=== PATIENT | female | born 1985 | race Caucasian/White ===

== ENCOUNTER 2020-05-28 14:41 | Inpatient (IN) | payer OTHER ==
[2020-05-28 17:48] VITALS: BMI 32.3
[2020-05-28] MEDS ORDERED: IBUPROFEN 400 MG TABLET (FP) PO PRN (22:21)
[2020-05-28] MEDS ORDERED: BISMUTH SUBSALICYLATE 524 MG/30 ML UD PO PRN (22:21)
[2020-05-28] MEDS ORDERED: MENTHOL/PHENOL 1 EACH UD MM PRN (22:21)
[2020-05-28] MEDS ORDERED: NICOTINE POLACRILEX 2 MG GUM BUC PRN (22:21)
[2020-05-28] MEDS ORDERED: MAGNESIUM CITRATE 300 ML BOTTLE PO PRN (22:21)
[2020-05-28] MEDS ORDERED: MAGNESIUM HYDROX 2400MG/30ML ORAL SUSPENSION 30 ML CUP PO PRN (22:21)
[2020-05-28] MEDS ORDERED: MAG HYDROX/AL HYDROX/SIMETH 30 ML UNIT-DOSE CUP PO PRN (22:21)
[2020-05-28] MEDS ORDERED: ONDANSETRON *ODT* 4 MG TABLET SL PRN (22:21)
[2020-05-28] MEDS ORDERED: ACETAMINOPHEN 325 MG TABLET (FP) PO PRN ×2 (22:21)
[2020-05-29] MEDS: diazePAM 5 MG TABLET PO SCH ×5 (00:42→22:03)
[2020-05-29] MEDS: METHOCARBAMOL 500 MG TABLET PO PRN (05:37)
[2020-05-29 10:13] LABS: HEMATOCRIT 36.5 % (32.4-45.2); HEMOGLOBIN 12.4 GM/dL (10.7-15.3); MCH 29.9 pg (25.7-33.7); MCHC 33.9 g/dl (32.0-36.0); MEAN CELL VOLUME 88.2 fl (80-96); MEAN PLT VOLUME 8.7 fl (7.5-11.1); PLATELET COUNT 226 K/MM3 (134-434); RBC 4.14 M/mm3 (3.60-5.2); RDW 12.8 % (11.6-15.6); WHITE BLOOD COUNT 7.7 K/mm3 (4.0-10.0)
[2020-05-29 10:17] LABS: POTASSIUM 4.2 mmol/L (3.5-5.1)
[2020-05-29 10:21] LABS: ALBUMIN 3.4 g/dl (3.4-5.0); CALCIUM 8.9 mg/dL (8.5-10.1)
[2020-05-29 10:22] LABS: BLOOD UREA NITROGEN 18.6 mg/dL (7-18)
[2020-05-29] MEDS: PRENATAL VITAMINS W/ FOLIC ACID TABLET (FP) PO SCH (10:23)
[2020-05-29 10:24] LABS: CREATININE 0.8 mg/dL (0.55-1.3)
[2020-05-29] MEDS: NICOTINE 21 MG/24 HOURS TOPICAL PATCH TD SCH (10:24)
[2020-05-29 10:26] LABS: BILIRUBIN,TOTAL 0.2 mg/dL (0.2-1)
[2020-05-29] MEDS ORDERED: METHADONE HCL 10 MG TABLET PO ONE (12:19)
[2020-05-29] MEDS: GABAPENTIN 100 MG CAPSULE PO SCH ×2 (13:43→22:03)
[2020-05-29] MEDS: diazePAM 5 MG TABLET PO PRN (13:43)
[2020-05-29 18:23] LABS: EPI CELLS 12 /uL (0-25.1); HYALINE CASTS 0 /uL (0-3.1); URINE APPEARANCE CLOUDY; URINE BACTERIA >9,000 /uL (0-1359); URINE BILIRUBIN NEGATIVE (NEGATIVE); URINE COLOR YELLOW; URINE GLUCOSE (UA) NEGATIVE (NEGATIVE); URINE KETONE NEGATIVE (NEGATIVE); URINE LEUK ESTERASE NEGATIVE (NEGATIVE); URINE NITRITE POSITIVE (NEGATIVE); URINE PROTEIN NEGATIVE (NEGATIVE); URINE RBC 12 /uL (0-23.9); URINE UROBILINOGEN 0.2 mg/dL (0.2-1.0); URINE WBC 29 /uL (0-25.8)
[2020-05-29] MEDS: THIAMINE HCL 100 MG TABLET (FP) PO SCH (22:03)
[2020-05-29] MEDS: traZODone HCL 50 MG TABLET (FP) PO SCH (22:03)
[2020-05-29] MEDS: MELATONIN 5 MG TABLETS PO SCH (22:04)
[2020-05-30] MEDS: GABAPENTIN 100 MG CAPSULE PO SCH ×3 (05:59→22:19)
[2020-05-30] MEDS: diazePAM 5 MG TABLET PO SCH ×3 (06:00→22:19)
[2020-05-30] MEDS: diazePAM 5 MG TABLET PO PRN ×2 (09:25→18:52)
[2020-05-30] MEDS: PRENATAL VITAMINS W/ FOLIC ACID TABLET (FP) PO SCH (09:26)
[2020-05-30] MEDS ORDERED: METHADONE 80 MG, METHADONE 30 MG PO ONE (10:00)
[2020-05-30] MEDS ORDERED: METHADONE HCL 10 MG TABLET PO ONE (10:00)
[2020-05-30] MEDS ORDERED: METHADONE HCL 10 MG TABLET ONE (10:36)
[2020-05-30] MEDS ORDERED: METHADONE HCL 40 MG DISPERSABLE TABLET ONE (10:37)
[2020-05-30] MEDS: NICOTINE 21 MG/24 HOURS TOPICAL PATCH TD SCH (10:40)
[2020-05-30] MEDS: traZODone HCL 50 MG TABLET (FP) PO SCH (22:19)
[2020-05-30] MEDS: THIAMINE HCL 100 MG TABLET (FP) PO SCH (22:19)
[2020-05-30] MEDS: MELATONIN 5 MG TABLETS PO SCH (22:19)
[2020-05-31] MEDS ORDERED: METHADONE HCL 40 MG DISPERSABLE TABLET ONE (04:35)
[2020-05-31] MEDS ORDERED: METHADONE HCL 10 MG TABLET ONE (04:35)
[2020-05-31] MEDS ORDERED: METHADONE HCL 10 MG TABLET PO SCH (06:00)
[2020-05-31] MEDS: METHADONE 80 MG, METHADONE 30 MG PO SCH (06:16)
[2020-05-31] MEDS: diazePAM 5 MG TABLET PO SCH ×2 (06:16→17:48)
[2020-05-31] MEDS: GABAPENTIN 100 MG CAPSULE PO SCH ×3 (06:17→22:33)
[2020-05-31] MEDS: NICOTINE 21 MG/24 HOURS TOPICAL PATCH TD SCH (10:30)
[2020-05-31] MEDS: PRENATAL VITAMINS W/ FOLIC ACID TABLET (FP) PO SCH (10:30)
[2020-05-31] MEDS: diazePAM 5 MG TABLET PO PRN ×3 (10:31→22:33)
[2020-05-31] MEDS: METHOCARBAMOL 500 MG TABLET PO PRN (13:22)
[2020-05-31] MEDS: THIAMINE HCL 100 MG TABLET (FP) PO SCH (22:33)
[2020-05-31] MEDS: MELATONIN 5 MG TABLETS PO SCH (22:35)
[2020-05-31] MEDS: traZODone HCL 50 MG TABLET (FP) PO SCH (22:36)
[2020-06-01] MEDS ORDERED: METHADONE HCL 40 MG DISPERSABLE TABLET ONE (03:46)
[2020-06-01] MEDS ORDERED: METHADONE HCL 10 MG TABLET ONE (03:46)
[2020-06-01] MEDS ORDERED: diazePAM 5 MG TABLET PO ONE (06:00)
[2020-06-01] MEDS: METHADONE 80 MG, METHADONE 30 MG PO SCH (06:19)
[2020-06-01] MEDS: GABAPENTIN 100 MG CAPSULE PO SCH (06:20)
[2020-06-01 08:06] VITALS: BP 106/62; PULSE 69; TEMP 97.3
[2020-06-01] MEDS: NICOTINE 21 MG/24 HOURS TOPICAL PATCH TD SCH (10:24)
[2020-06-01] MEDS: PRENATAL VITAMINS W/ FOLIC ACID TABLET (FP) PO SCH (10:24)
== END 2020-06-01 11:02 | disposition other institution (70) | DRG 773 ==
LOC: YASAS 14:41 → Y6N 22:51
PROVIDERS: ADMIT Allergy & Immunology; ATTEND Allergy & Immunology
PROC: HZ2ZZZZ Detoxification Services for Substance Abuse Treatment (ICD-10-PCS; principal; 2020-05-28)
DX: F10.230 Alcohol dependence with withdrawal, uncomplicated (principal); F13.230 Sedative, hypnotic or anxiolytic dependence with withdrawal, uncomplicated; F11.20 Opioid dependence, uncomplicated; F12.20 Cannabis dependence, uncomplicated; F17.210 Nicotine dependence, cigarettes, uncomplicated; F19.282 Other psychoactive substance dependence with psychoactive substance-induced sleep disorder; F19.24 Other psychoactive substance dependence with psychoactive substance-induced mood disorder; F31.9 Bipolar disorder, unspecified; F41.9 Anxiety disorder, unspecified; G40.909 Epilepsy, unspecified, not intractable, without status epilepticus; E11.9 Type 2 diabetes mellitus without complications; H54.62 Unqualified visual loss, left eye, normal vision right eye; Z91.5 Personal history of self-harm
CPT/HCPCS: 36415; 80053; 81003; 81025; 82962; 85027; 86780; C9803; Q0162; U0003

== ENCOUNTER 2020-06-01 13:44 | Inpatient (IN) | payer OTHER ==
[2020-06-01] MEDS ORDERED: LOPERAMIDE HCL 2 MG CAPSULE PO PRN (14:37)
[2020-06-01] MEDS ORDERED: P-EPHED 60MG/TRIPROLIDI 2.5MG TABLET PO PRN (14:37)
[2020-06-01] MEDS ORDERED: MENTHOL/PHENOL 1 EACH UD MM PRN (14:37)
[2020-06-01] MEDS ORDERED: MAGNESIUM HYDROX 2400MG/30ML ORAL SUSPENSION 30 ML CUP PO PRN (14:37)
[2020-06-01] MEDS ORDERED: ACETAMINOPHEN 325 MG TABLET (FP) PO PRN (14:37)
[2020-06-01] MEDS ORDERED: IBUPROFEN 400 MG TABLET (FP) PO PRN (14:37)
[2020-06-01] MEDS ORDERED: MAG HYDROX/AL HYDROX/SIMETH 30 ML UNIT-DOSE CUP PO PRN (14:37)
[2020-06-01] MEDS ORDERED: MAGNESIUM CITRATE 300 ML BOTTLE PO PRN (14:37)
[2020-06-01] MEDS ORDERED: guaiFENesin 200 MG/10 ML 10 ML UNIT-DOSE CUPS PO PRN (14:37)
[2020-06-01] MEDS: MELATONIN 5 MG TABLETS PO SCH (21:12)
[2020-06-01] MEDS: THIAMINE HCL 100 MG TABLET (FP) PO SCH (21:12)
[2020-06-01] MEDS: hydrOXYzine PAMOATE 25 MG CAPSULE (FP) PO PRN (21:12)
[2020-06-01] MEDS: traZODone HCL 50 MG TABLET (FP) PO SCH (21:13)
[2020-06-01] MEDS: GABAPENTIN 100 MG CAPSULE PO SCH (22:26)
[2020-06-02] MEDS ORDERED: METHADONE HCL 10 MG TABLET ONE (04:16)
[2020-06-02] MEDS ORDERED: METHADONE HCL 40 MG DISPERSABLE TABLET ONE (04:16)
[2020-06-02] MEDS ORDERED: METHADONE HCL 10 MG TABLET PO SCH (06:00)
[2020-06-02] MEDS: GABAPENTIN 100 MG CAPSULE PO SCH ×3 (07:45→21:22)
[2020-06-02] MEDS: METHADONE 80 MG, METHADONE 30 MG PO SCH (07:45)
[2020-06-02] MEDS ORDERED: NICOTINE 7 MG/24 HOURS TOPICAL PATCH TD SCH (10:00)
[2020-06-02] MEDS: PRENATAL VITAMINS W/ FOLIC ACID TABLET (FP) PO SCH (10:46)
[2020-06-02] MEDS: NICOTINE 14 MG/24 HOURS TOPICAL PATCH TD SCH (12:16)
[2020-06-02] MEDS: hydrOXYzine PAMOATE 25 MG CAPSULE (FP) PO PRN (14:10)
[2020-06-02 16:49] LABS: EPI CELLS >36 /uL (0-25.1); HYALINE CASTS 3 /uL (0-3.1); URINE APPEARANCE CLOUDY; URINE BACTERIA >9,000 /uL (0-1359); URINE BILIRUBIN NEGATIVE (NEGATIVE); URINE COLOR YELLOW; URINE GLUCOSE (UA) NEGATIVE (NEGATIVE); URINE KETONE NEGATIVE (NEGATIVE); URINE LEUK ESTERASE TRACE (NEGATIVE); URINE NITRITE NEGATIVE (NEGATIVE); URINE PROTEIN NEGATIVE (NEGATIVE); URINE RBC 39 /uL (0-23.9); URINE UROBILINOGEN 0.2 mg/dL (0.2-1.0); URINE WBC 59 /uL (0-25.8)
[2020-06-02] MEDS: MELATONIN 5 MG TABLETS PO SCH (21:22)
[2020-06-02] MEDS: THIAMINE HCL 100 MG TABLET (FP) PO SCH (21:22)
[2020-06-02] MEDS: traZODone HCL 50 MG TABLET (FP) PO SCH (21:23)
[2020-06-03] MEDS ORDERED: METHADONE HCL 10 MG TABLET ONE (05:41)
[2020-06-03] MEDS ORDERED: METHADONE HCL 40 MG DISPERSABLE TABLET ONE (05:42)
[2020-06-03] MEDS: GABAPENTIN 100 MG CAPSULE PO SCH ×3 (06:24→21:19)
[2020-06-03] MEDS: METHADONE 80 MG, METHADONE 30 MG PO SCH (06:24)
[2020-06-03] MEDS: PRENATAL VITAMINS W/ FOLIC ACID TABLET (FP) PO SCH (10:44)
[2020-06-03] MEDS: NICOTINE POLACRILEX 2 MG GUM BUC PRN ×3 (10:45→21:21)
[2020-06-03] MEDS: NICOTINE 14 MG/24 HOURS TOPICAL PATCH TD SCH (10:45)
[2020-06-03] MEDS: hydrOXYzine PAMOATE 25 MG CAPSULE (FP) PO PRN (10:46)
[2020-06-03] MEDS ORDERED: GABAPENTIN 100 MG CAPSULE PO SCH (15:00)
[2020-06-03] MEDS: THIAMINE HCL 100 MG TABLET (FP) PO SCH (21:19)
[2020-06-03] MEDS: traZODone HCL 50 MG TABLET (FP) PO SCH (21:19)
[2020-06-03] MEDS: MELATONIN 5 MG TABLETS PO SCH (21:20)
[2020-06-04] MEDS ORDERED: METHADONE HCL 40 MG DISPERSABLE TABLET ONE (05:50)
[2020-06-04] MEDS ORDERED: METHADONE HCL 10 MG TABLET ONE (05:50)
[2020-06-04] MEDS: METHADONE 80 MG, METHADONE 30 MG PO SCH (06:53)
[2020-06-04] MEDS: GABAPENTIN 100 MG CAPSULE PO SCH ×2 (06:53→14:26)
[2020-06-04] MEDS: PRENATAL VITAMINS W/ FOLIC ACID TABLET (FP) PO SCH (10:33)
[2020-06-04] MEDS: hydrOXYzine PAMOATE 25 MG CAPSULE (FP) PO PRN ×2 (10:33→18:38)
[2020-06-04] MEDS: NICOTINE 14 MG/24 HOURS TOPICAL PATCH TD SCH (10:34)
[2020-06-04] MEDS: NICOTINE POLACRILEX 2 MG GUM BUC PRN ×2 (10:35→17:13)
[2020-06-04] MEDS ORDERED: SULFAMETHOXAZOLE/TRIMETHOPRIM 800MG/160MG D.S. TABLET PO ONE (13:42)
[2020-06-04] MEDS: GABAPENTIN 300 MG CAPSULE PO SCH ×2 (14:23→21:21)
[2020-06-04] MEDS: SULFAMETHOXAZOLE/TRIMETHOPRIM 800MG/160MG D.S. TABLET PO SCH (21:21)
[2020-06-04] MEDS: THIAMINE HCL 100 MG TABLET (FP) PO SCH (21:21)
[2020-06-04] MEDS: MELATONIN 5 MG TABLETS PO SCH (21:21)
[2020-06-04] MEDS: traZODone HCL 50 MG TABLET (FP) PO SCH (21:22)
[2020-06-05] MEDS ORDERED: METHADONE HCL 10 MG TABLET ONE (04:01)
[2020-06-05] MEDS ORDERED: METHADONE HCL 40 MG DISPERSABLE TABLET ONE (04:01)
[2020-06-05] MEDS: METHADONE 80 MG, METHADONE 30 MG PO SCH (06:17)
[2020-06-05] MEDS: GABAPENTIN 300 MG CAPSULE PO SCH ×3 (06:17→21:55)
[2020-06-05] MEDS: SULFAMETHOXAZOLE/TRIMETHOPRIM 800MG/160MG D.S. TABLET PO SCH ×2 (10:40→21:56)
[2020-06-05] MEDS: PRENATAL VITAMINS W/ FOLIC ACID TABLET (FP) PO SCH (10:40)
[2020-06-05] MEDS: NICOTINE 14 MG/24 HOURS TOPICAL PATCH TD SCH (10:41)
[2020-06-05] MEDS: hydrOXYzine PAMOATE 25 MG CAPSULE (FP) PO PRN (13:56)
[2020-06-05] MEDS: THIAMINE HCL 100 MG TABLET (FP) PO SCH (21:55)
[2020-06-05] MEDS: MELATONIN 5 MG TABLETS PO SCH (21:56)
[2020-06-05] MEDS: traZODone HCL 50 MG TABLET (FP) PO SCH (21:56)
[2020-06-06] MEDS ORDERED: METHADONE HCL 10 MG TABLET ONE (03:15)
[2020-06-06] MEDS ORDERED: METHADONE HCL 40 MG DISPERSABLE TABLET ONE (03:16)
[2020-06-06] MEDS: GABAPENTIN 300 MG CAPSULE PO SCH ×3 (06:20→21:17)
[2020-06-06] MEDS: METHADONE 80 MG, METHADONE 30 MG PO SCH (06:20)
[2020-06-06] MEDS: PRENATAL VITAMINS W/ FOLIC ACID TABLET (FP) PO SCH (10:44)
[2020-06-06] MEDS: NICOTINE 14 MG/24 HOURS TOPICAL PATCH TD SCH (10:44)
[2020-06-06] MEDS: SULFAMETHOXAZOLE/TRIMETHOPRIM 800MG/160MG D.S. TABLET PO SCH ×2 (10:45→21:17)
[2020-06-06] MEDS: NICOTINE POLACRILEX 2 MG GUM BUC PRN (10:45)
[2020-06-06] MEDS: THIAMINE HCL 100 MG TABLET (FP) PO SCH (21:17)
[2020-06-06] MEDS: MELATONIN 5 MG TABLETS PO SCH (21:17)
[2020-06-06] MEDS: traZODone HCL 50 MG TABLET (FP) PO SCH (23:39)
[2020-06-06] MEDS: MICONAZOLE NITRATE 14 GM/TUBE TUBE TP SCH (23:40)
[2020-06-07] MEDS ORDERED: METHADONE HCL 10 MG TABLET ONE (06:21)
[2020-06-07] MEDS: METHADONE 80 MG, METHADONE 30 MG PO SCH (06:21)
[2020-06-07] MEDS: GABAPENTIN 300 MG CAPSULE PO SCH ×3 (06:21→21:56)
[2020-06-07] MEDS ORDERED: METHADONE HCL 40 MG DISPERSABLE TABLET ONE (06:21)
[2020-06-07] MEDS: PRENATAL VITAMINS W/ FOLIC ACID TABLET (FP) PO SCH (10:53)
[2020-06-07] MEDS: NICOTINE 14 MG/24 HOURS TOPICAL PATCH TD SCH (10:54)
[2020-06-07] MEDS: SULFAMETHOXAZOLE/TRIMETHOPRIM 800MG/160MG D.S. TABLET PO SCH ×2 (10:55→21:56)
[2020-06-07] MEDS: NICOTINE POLACRILEX 2 MG GUM BUC PRN (10:56)
[2020-06-07] MEDS: MICONAZOLE NITRATE 14 GM/TUBE TUBE TP SCH ×2 (13:01→21:56)
[2020-06-07] MEDS: THIAMINE HCL 100 MG TABLET (FP) PO SCH (21:56)
[2020-06-07] MEDS: MELATONIN 5 MG TABLETS PO SCH (21:56)
[2020-06-07] MEDS: traZODone HCL 50 MG TABLET (FP) PO SCH (21:56)
[2020-06-08] MEDS ORDERED: METHADONE HCL 40 MG DISPERSABLE TABLET ONE (04:33)
[2020-06-08] MEDS ORDERED: METHADONE HCL 10 MG TABLET ONE (04:33)
[2020-06-08] MEDS: METHADONE 80 MG, METHADONE 30 MG PO SCH (07:04)
[2020-06-08] MEDS: GABAPENTIN 300 MG CAPSULE PO SCH ×3 (07:05→21:54)
[2020-06-08] MEDS: PRENATAL VITAMINS W/ FOLIC ACID TABLET (FP) PO SCH (10:33)
[2020-06-08] MEDS: MICONAZOLE NITRATE 14 GM/TUBE TUBE TP SCH ×2 (10:34→21:54)
[2020-06-08] MEDS: SULFAMETHOXAZOLE/TRIMETHOPRIM 800MG/160MG D.S. TABLET PO SCH ×2 (10:34→21:54)
[2020-06-08] MEDS: NICOTINE 14 MG/24 HOURS TOPICAL PATCH TD SCH (10:35)
[2020-06-08] MEDS: NICOTINE POLACRILEX 2 MG GUM BUC PRN (10:36)
[2020-06-08] MEDS: MELATONIN 5 MG TABLETS PO SCH (21:54)
[2020-06-08] MEDS: traZODone HCL 50 MG TABLET (FP) PO SCH (21:55)
[2020-06-08] MEDS ORDERED: THIAMINE HCL 100 MG TABLET (FP) PO SCH (22:00)
[2020-06-09] MEDS ORDERED: METHADONE HCL 40 MG DISPERSABLE TABLET ONE (03:47)
[2020-06-09] MEDS ORDERED: METHADONE HCL 10 MG TABLET ONE (03:47)
[2020-06-09] MEDS: METHADONE 80 MG, METHADONE 30 MG PO SCH (06:23)
[2020-06-09] MEDS: GABAPENTIN 300 MG CAPSULE PO SCH (06:24)
[2020-06-09 07:22] VITALS: BP 99/68; PULSE 91; TEMP 97.4
[2020-06-09] MEDS: SULFAMETHOXAZOLE/TRIMETHOPRIM 800MG/160MG D.S. TABLET PO SCH (09:58)
[2020-06-09] MEDS: hydrOXYzine PAMOATE 25 MG CAPSULE (FP) PO PRN (09:59)
[2020-06-09] MEDS: NICOTINE 14 MG/24 HOURS TOPICAL PATCH TD SCH (09:59)
[2020-06-09] MEDS: PRENATAL VITAMINS W/ FOLIC ACID TABLET (FP) PO SCH (09:59)
[2020-06-09] MEDS ORDERED: THIAMINE HCL 100 MG TABLET (FP) PO SCH (10:00)
[2020-06-09] MEDS: MICONAZOLE NITRATE 14 GM/TUBE TUBE TP SCH (10:01)
== END 2020-06-09 10:10 | disposition home or self-care (01) | DRG 772 ==
LOC: YASAS 13:44 → Y5N 13:45
PROVIDERS: ADMIT Allergy & Immunology; ATTEND Allergy & Immunology
PROC: HZ42ZZZ Group Counseling for Substance Abuse Treatment, Cognitive-Behavioral (ICD-10-PCS; principal; 2020-06-01)
DX: F10.20 Alcohol dependence, uncomplicated (principal); F11.20 Opioid dependence, uncomplicated; F13.20 Sedative, hypnotic or anxiolytic dependence, uncomplicated; F12.20 Cannabis dependence, uncomplicated; F17.210 Nicotine dependence, cigarettes, uncomplicated; F19.282 Other psychoactive substance dependence with psychoactive substance-induced sleep disorder; F31.9 Bipolar disorder, unspecified; F41.9 Anxiety disorder, unspecified; G47.00 Insomnia, unspecified; H54.62 Unqualified visual loss, left eye, normal vision right eye; N39.0 Urinary tract infection, site not specified; B96.20 Unspecified Escherichia coli [E. coli] as the cause of diseases classified elsewhere; R73.03 Prediabetes; Z62.810 Personal history of physical and sexual abuse in childhood
CPT/HCPCS: 81003; 82962; 87086; 87186; C9803; U0003

== ENCOUNTER 2021-02-02 17:36 | Inpatient (IN) | payer OTHER ==
[2021-02-02 19:05] VITALS: BMI 30.2
[2021-02-02] MEDS ORDERED: METHOCARBAMOL 500 MG TABLET PO PRN (19:35)
[2021-02-02] MEDS ORDERED: NALOXONE (NARCAN) HCL 4 MG/0.1 ML SPRAY NS PRN (19:35)
[2021-02-02] MEDS ORDERED: MAG HYDROX/AL HYDROX/SIMETH 30 ML UNIT-DOSE CUP PO PRN (19:35)
[2021-02-02] MEDS ORDERED: IBUPROFEN 400 MG TABLET (FP) PO PRN (19:35)
[2021-02-02] MEDS ORDERED: BISMUTH SUBSALICYLATE 524 MG/30 ML PO PRN (19:35)
[2021-02-02] MEDS ORDERED: MENTHOL/PHENOL 1 EACH UD MM PRN (19:35)
[2021-02-02] MEDS ORDERED: ONDANSETRON *ODT* 4 MG TABLET SL PRN (19:35)
[2021-02-02] MEDS ORDERED: MAGNESIUM HYDROX 2400MG/30ML ORAL SUSPENSION 30 ML CUP PO PRN (19:35)
[2021-02-02] MEDS ORDERED: MAGNESIUM CITRATE 300 ML BOTTLE PO PRN (19:35)
[2021-02-02] MEDS ORDERED: ACETAMINOPHEN 325 MG TABLET (FP) PO PRN ×2 (19:35)
[2021-02-02] MEDS: THIAMINE HCL 100 MG TABLET (FP) PO SCH (23:26)
[2021-02-02] MEDS: hydrOXYzine PAMOATE 25 MG CAPSULE (FP) PO SCH (23:26)
[2021-02-02] MEDS: MELATONIN 5 MG TABLETS PO SCH (23:26)
[2021-02-03] MEDS ORDERED: methaDONE HCL 10 MG TABLET ONE (04:50)
[2021-02-03] MEDS ORDERED: methaDONE HCL 40 MG DISPERSABLE TABLET ONE (04:50)
[2021-02-03] MEDS: hydrOXYzine PAMOATE 25 MG CAPSULE (FP) PO SCH (05:50)
[2021-02-03] MEDS ORDERED: methaDONE HCL 40 MG DISPERSABLE TABLET PO SCH (06:00)
[2021-02-03] MEDS: NICOTINE 14 MG/24 HOURS TOPICAL PATCH TD SCH (10:44)
[2021-02-03] MEDS: PRENATAL VITAMINS W/ FOLIC ACID TABLET (FP) PO SCH (10:46)
[2021-02-03 11:39] LABS: HEMATOCRIT 35.5 % (32.4-45.2); HEMOGLOBIN 11.9 GM/dL (10.7-15.3); MCHC 33.6 g/dl (32.0-36.0); MEAN CELL VOLUME 89.5 fl (80-96); MEAN PLT VOLUME 8.9 fl (7.5-11.1); PLATELET COUNT 229 10^3/uL (134-434); RBC 3.97 M/mm3 (3.60-5.2); RDW 12.9 % (11.6-15.6); WHITE BLOOD COUNT 8.8 K/mm3 (4.0-10.0)
[2021-02-03 11:40] LABS: ALBUMIN 3.5 g/dl (3.4-5.0)
[2021-02-03] MEDS: diazePAM 5 MG TABLET PO SCH ×3 (11:41→22:31)
[2021-02-03 11:42] LABS: BLOOD UREA NITROGEN 17.1 mg/dL (7-18)
[2021-02-03 11:43] LABS: CREATININE 0.8 mg/dL (0.55-1.3)
[2021-02-03 11:47] LABS: BILIRUBIN,TOTAL 0.2 mg/dL (0.2-1); TOT PROT 7.2 g/dl (6.4-8.2)
[2021-02-03] MEDS: diazePAM 5 MG TABLET PO PRN (15:57)
[2021-02-03] MEDS: THIAMINE HCL 100 MG TABLET (FP) PO SCH (22:31)
[2021-02-03] MEDS: MELATONIN 5 MG TABLETS PO SCH (22:31)
[2021-02-03] MEDS: traZODone HCL 50 MG TABLET (FP) PO SCH (22:31)
[2021-02-04] MEDS ORDERED: methaDONE HCL 10 MG TABLET ONE (04:52)
[2021-02-04] MEDS ORDERED: methaDONE HCL 40 MG DISPERSABLE TABLET ONE (04:52)
[2021-02-04] MEDS: diazePAM 5 MG TABLET PO SCH ×4 (05:54→22:26)
[2021-02-04] MEDS: NICOTINE 10 MG CARTRIDGE (INHALER) IH PRN ×2 (10:24→14:57)
[2021-02-04] MEDS: PRENATAL VITAMINS W/ FOLIC ACID TABLET (FP) PO SCH (10:24)
[2021-02-04] MEDS: NICOTINE 14 MG/24 HOURS TOPICAL PATCH TD SCH (10:24)
[2021-02-04] MEDS ORDERED: PNEUMOC 13-VAL CONJ-DIP CRM/PF 0.5 ML DISP.SYRIN IM ONE (12:00)
[2021-02-04] MEDS ORDERED: FLU VACC QS2021-22(6MOS UP)/PF 60 MCG/0.5 ML SYRINGE IM ONE (12:00)
[2021-02-04] MEDS: diazePAM 5 MG TABLET PO PRN (14:03)
[2021-02-04] MEDS: THIAMINE HCL 100 MG TABLET (FP) PO SCH (22:26)
[2021-02-04] MEDS: MELATONIN 5 MG TABLETS PO SCH (22:26)
[2021-02-04] MEDS: traZODone HCL 50 MG TABLET (FP) PO SCH (23:09)
[2021-02-05] MEDS ORDERED: methaDONE HCL 10 MG TABLET ONE (04:44)
[2021-02-05] MEDS ORDERED: methaDONE HCL 40 MG DISPERSABLE TABLET ONE (04:44)
[2021-02-05] MEDS: diazePAM 5 MG TABLET PO SCH ×3 (05:57→22:16)
[2021-02-05] MEDS: hydrOXYzine PAMOATE 25 MG CAPSULE (FP) PO PRN (05:59)
[2021-02-05] MEDS: NICOTINE 10 MG CARTRIDGE (INHALER) IH PRN (10:07)
[2021-02-05] MEDS: PRENATAL VITAMINS W/ FOLIC ACID TABLET (FP) PO SCH (10:07)
[2021-02-05] MEDS: NICOTINE 14 MG/24 HOURS TOPICAL PATCH TD SCH (10:07)
[2021-02-05] MEDS: diazePAM 5 MG TABLET PO PRN ×2 (10:09→17:24)
[2021-02-05] MEDS: MELATONIN 5 MG TABLETS PO SCH (22:15)
[2021-02-05] MEDS: THIAMINE HCL 100 MG TABLET (FP) PO SCH (22:15)
[2021-02-05] MEDS: traZODone HCL 50 MG TABLET (FP) PO SCH (22:15)
[2021-02-06] MEDS ORDERED: methaDONE HCL 40 MG DISPERSABLE TABLET ONE (04:21)
[2021-02-06] MEDS ORDERED: methaDONE HCL 10 MG TABLET ONE (04:21)
[2021-02-06] MEDS: diazePAM 5 MG TABLET PO SCH ×2 (05:47→17:03)
[2021-02-06] MEDS: hydrOXYzine PAMOATE 25 MG CAPSULE (FP) PO PRN ×4 (05:47→22:12)
[2021-02-06] MEDS: NICOTINE 10 MG CARTRIDGE (INHALER) IH PRN (10:07)
[2021-02-06] MEDS: diazePAM 5 MG TABLET PO PRN (10:11)
[2021-02-06] MEDS: PRENATAL VITAMINS W/ FOLIC ACID TABLET (FP) PO SCH (10:11)
[2021-02-06] MEDS: NICOTINE 14 MG/24 HOURS TOPICAL PATCH TD SCH (11:41)
[2021-02-06] MEDS: THIAMINE HCL 100 MG TABLET (FP) PO SCH (22:12)
[2021-02-06] MEDS: MELATONIN 5 MG TABLETS PO SCH (22:12)
[2021-02-06] MEDS: traZODone HCL 50 MG TABLET (FP) PO SCH (22:14)
[2021-02-07] MEDS ORDERED: diazePAM 5 MG TABLET PO ONE (06:00)
[2021-02-07] MEDS ORDERED: methaDONE HCL 40 MG DISPERSABLE TABLET ONE (06:49)
[2021-02-07] MEDS ORDERED: methaDONE HCL 10 MG TABLET ONE (06:49)
[2021-02-07] MEDS: NICOTINE 10 MG CARTRIDGE (INHALER) IH PRN (07:12)
[2021-02-07] MEDS: NICOTINE 14 MG/24 HOURS TOPICAL PATCH TD SCH (09:58)
[2021-02-07] MEDS: PRENATAL VITAMINS W/ FOLIC ACID TABLET (FP) PO SCH (09:58)
[2021-02-07 13:02] VITALS: BP 103/66; PULSE 92; TEMP 97.7
== END 2021-02-07 14:25 | disposition other institution (70) | DRG 773 ==
LOC: YASAS 17:36 → Y3N 20:57
PROVIDERS: ADMIT Allergy & Immunology; ATTEND Allergy & Immunology
PROC: HZ2ZZZZ Detoxification Services for Substance Abuse Treatment (ICD-10-PCS; principal; 2021-02-02)
DX: F10.230 Alcohol dependence with withdrawal, uncomplicated (principal); F11.20 Opioid dependence, uncomplicated; F14.20 Cocaine dependence, uncomplicated; F13.20 Sedative, hypnotic or anxiolytic dependence, uncomplicated; F12.20 Cannabis dependence, uncomplicated; F17.210 Nicotine dependence, cigarettes, uncomplicated; F19.282 Other psychoactive substance dependence with psychoactive substance-induced sleep disorder; F19.24 Other psychoactive substance dependence with psychoactive substance-induced mood disorder; F31.9 Bipolar disorder, unspecified; E11.9 Type 2 diabetes mellitus without complications; H54.62 Unqualified visual loss, left eye, normal vision right eye; Z86.19 Personal history of other infectious and parasitic diseases; Z91.410 Personal history of adult physical and sexual abuse
CPT/HCPCS: 36415; 80053; 81025; 83036; 85027; 86780; 86803; 87522; 90670; 90686; 93005; 93010; C9803; G0008; G0009; U0003; U0005

== ENCOUNTER 2021-02-07 14:52 | Inpatient (IN) | payer OTHER ==
[2021-02-07] MEDS ORDERED: P-EPHED 60MG/TRIPROLIDI 2.5MG TABLET PO PRN (15:27)
[2021-02-07] MEDS ORDERED: LOPERAMIDE HCL 2 MG CAPSULE PO PRN (15:27)
[2021-02-07] MEDS ORDERED: MAG HYDROX/AL HYDROX/SIMETH 30 ML UNIT-DOSE CUP PO PRN (15:27)
[2021-02-07] MEDS ORDERED: MAGNESIUM CITRATE 300 ML BOTTLE PO PRN (15:27)
[2021-02-07] MEDS ORDERED: guaiFENesin 200 MG/10 ML 10 ML UNIT-DOSE CUPS PO PRN (15:27)
[2021-02-07] MEDS ORDERED: MENTHOL/PHENOL 1 EACH UD MM PRN (15:27)
[2021-02-07] MEDS ORDERED: MAGNESIUM HYDROX 2400MG/30ML ORAL SUSPENSION 30 ML CUP PO PRN (15:27)
[2021-02-07] MEDS: hydrOXYzine PAMOATE 25 MG CAPSULE (FP) PO PRN (21:34)
[2021-02-07] MEDS: THIAMINE HCL 100 MG TABLET (FP) PO SCH (21:34)
[2021-02-07] MEDS: MELATONIN 5 MG TABLETS PO SCH (21:34)
[2021-02-07] MEDS ORDERED: traZODone HCL 50 MG TABLET (FP) PO SCH (22:00)
[2021-02-08] MEDS ORDERED: methaDONE HCL 40 MG DISPERSABLE TABLET PO SCH (06:00)
[2021-02-08] MEDS ORDERED: methaDONE HCL 10 MG TABLET ONE (06:18)
[2021-02-08] MEDS ORDERED: methaDONE HCL 40 MG DISPERSABLE TABLET ONE (06:18)
[2021-02-08] MEDS: hydrOXYzine PAMOATE 25 MG CAPSULE (FP) PO PRN (10:29)
[2021-02-08] MEDS: PRENATAL VITAMINS W/ FOLIC ACID TABLET (FP) PO SCH (10:29)
[2021-02-08] MEDS: NICOTINE 7 MG/24 HOURS TOPICAL PATCH TD SCH (10:29)
[2021-02-08] MEDS: NICOTINE 10 MG CARTRIDGE (INHALER) IH PRN ×2 (10:29→22:30)
[2021-02-08] MEDS: THIAMINE HCL 100 MG TABLET (FP) PO SCH (21:41)
[2021-02-08] MEDS: GABAPENTIN 100 MG CAPSULE PO SCH (21:41)
[2021-02-08] MEDS: traZODone HCL 50 MG TABLET (FP) PO SCH (21:41)
[2021-02-08] MEDS: MELATONIN 5 MG TABLETS PO SCH (21:42)
[2021-02-09] MEDS ORDERED: methaDONE HCL 40 MG DISPERSABLE TABLET ONE (03:26)
[2021-02-09] MEDS ORDERED: methaDONE HCL 10 MG TABLET ONE (03:26)
[2021-02-09] MEDS: PRENATAL VITAMINS W/ FOLIC ACID TABLET (FP) PO SCH (10:12)
[2021-02-09] MEDS: NICOTINE 7 MG/24 HOURS TOPICAL PATCH TD SCH (10:12)
[2021-02-09] MEDS: GABAPENTIN 100 MG CAPSULE PO SCH ×2 (10:13→21:31)
[2021-02-09] MEDS: NICOTINE 10 MG CARTRIDGE (INHALER) IH PRN ×2 (13:43→21:33)
[2021-02-09] MEDS: hydrOXYzine PAMOATE 25 MG CAPSULE (FP) PO PRN (18:05)
[2021-02-09] MEDS: THIAMINE HCL 100 MG TABLET (FP) PO SCH (21:32)
[2021-02-09] MEDS: MELATONIN 5 MG TABLETS PO SCH (21:32)
[2021-02-09] MEDS: traZODone HCL 50 MG TABLET (FP) PO SCH (21:34)
[2021-02-09] MEDS ORDERED: hydrOXYzine PAMOATE 25 MG CAPSULE (FP) PO PRN (22:00)
[2021-02-10] MEDS ORDERED: methaDONE HCL 40 MG DISPERSABLE TABLET ONE (03:28)
[2021-02-10] MEDS ORDERED: methaDONE HCL 10 MG TABLET ONE (03:28)
[2021-02-10] MEDS: NICOTINE 7 MG/24 HOURS TOPICAL PATCH TD SCH (10:10)
[2021-02-10] MEDS: PRENATAL VITAMINS W/ FOLIC ACID TABLET (FP) PO SCH (10:10)
[2021-02-10] MEDS: GABAPENTIN 100 MG CAPSULE PO SCH ×2 (10:10→21:46)
[2021-02-10] MEDS: NICOTINE 10 MG CARTRIDGE (INHALER) IH PRN ×2 (10:11→21:47)
[2021-02-10] MEDS: THIAMINE HCL 100 MG TABLET (FP) PO SCH (21:46)
[2021-02-10] MEDS: traZODone HCL 50 MG TABLET (FP) PO SCH (21:46)
[2021-02-10] MEDS: MELATONIN 5 MG TABLETS PO SCH (21:47)
[2021-02-11] MEDS ORDERED: methaDONE HCL 40 MG DISPERSABLE TABLET ONE (03:30)
[2021-02-11] MEDS ORDERED: methaDONE HCL 10 MG TABLET ONE (03:30)
[2021-02-11] MEDS: NICOTINE 7 MG/24 HOURS TOPICAL PATCH TD SCH (10:11)
[2021-02-11] MEDS: PRENATAL VITAMINS W/ FOLIC ACID TABLET (FP) PO SCH (10:11)
[2021-02-11] MEDS: GABAPENTIN 100 MG CAPSULE PO SCH ×2 (10:12→21:53)
[2021-02-11] MEDS: hydrOXYzine PAMOATE 25 MG CAPSULE (FP) PO PRN ×2 (10:13→18:24)
[2021-02-11] MEDS: DOCUSATE SODIUM 100 MG CAPSULE (FP) PO PRN (11:03)
[2021-02-11] MEDS: NICOTINE 10 MG CARTRIDGE (INHALER) IH PRN ×2 (13:33→18:23)
[2021-02-11] MEDS: MELATONIN 5 MG TABLETS PO SCH (21:52)
[2021-02-11] MEDS: THIAMINE HCL 100 MG TABLET (FP) PO SCH (21:52)
[2021-02-11] MEDS: traZODone HCL 50 MG TABLET (FP) PO SCH (21:55)
[2021-02-12] MEDS ORDERED: methaDONE HCL 40 MG DISPERSABLE TABLET ONE (03:13)
[2021-02-12] MEDS ORDERED: methaDONE HCL 10 MG TABLET ONE (03:13)
[2021-02-12] MEDS: NICOTINE 10 MG CARTRIDGE (INHALER) IH PRN ×2 (06:40→18:04)
[2021-02-12] MEDS: PRENATAL VITAMINS W/ FOLIC ACID TABLET (FP) PO SCH (10:29)
[2021-02-12] MEDS: NICOTINE 7 MG/24 HOURS TOPICAL PATCH TD SCH (10:29)
[2021-02-12] MEDS: GABAPENTIN 100 MG CAPSULE PO SCH ×3 (10:29→22:00)
[2021-02-12] MEDS: hydrOXYzine PAMOATE 25 MG CAPSULE (FP) PO PRN ×2 (10:30→18:04)
[2021-02-12] MEDS: DOCUSATE SODIUM 100 MG CAPSULE (FP) PO PRN (10:30)
[2021-02-12 19:05] LABS: HIV INTERPRETATION NEGATIVE (NEGATIVE)
[2021-02-12] MEDS: MELATONIN 5 MG TABLETS PO SCH (22:00)
[2021-02-12] MEDS: THIAMINE HCL 100 MG TABLET (FP) PO SCH (22:00)
[2021-02-12] MEDS: traZODone HCL 50 MG TABLET (FP) PO SCH (22:00)
[2021-02-13] MEDS ORDERED: methaDONE HCL 10 MG TABLET ONE (03:15)
[2021-02-13] MEDS ORDERED: methaDONE HCL 40 MG DISPERSABLE TABLET ONE (03:16)
[2021-02-13] MEDS: GABAPENTIN 100 MG CAPSULE PO SCH ×3 (06:44→21:26)
[2021-02-13] MEDS: PRENATAL VITAMINS W/ FOLIC ACID TABLET (FP) PO SCH (09:18)
[2021-02-13] MEDS: IBUPROFEN 400 MG TABLET (FP) PO PRN ×2 (09:18→17:26)
[2021-02-13] MEDS: NICOTINE 7 MG/24 HOURS TOPICAL PATCH TD SCH (09:20)
[2021-02-13] MEDS: DOCUSATE SODIUM 100 MG CAPSULE (FP) PO PRN (21:24)
[2021-02-13] MEDS: traZODone HCL 50 MG TABLET (FP) PO SCH (21:25)
[2021-02-13] MEDS: MELATONIN 5 MG TABLETS PO SCH (21:26)
[2021-02-13] MEDS: hydrOXYzine PAMOATE 25 MG CAPSULE (FP) PO PRN (21:26)
[2021-02-13] MEDS: THIAMINE HCL 100 MG TABLET (FP) PO SCH (21:26)
[2021-02-13] MEDS: NICOTINE 10 MG CARTRIDGE (INHALER) IH PRN (21:29)
[2021-02-14] MEDS ORDERED: methaDONE HCL 10 MG TABLET ONE (04:23)
[2021-02-14] MEDS ORDERED: methaDONE HCL 40 MG DISPERSABLE TABLET ONE (04:24)
[2021-02-14] MEDS: GABAPENTIN 100 MG CAPSULE PO SCH ×3 (06:12→21:35)
[2021-02-14] MEDS: DOCUSATE SODIUM 100 MG CAPSULE (FP) PO PRN (10:46)
[2021-02-14] MEDS: NICOTINE 7 MG/24 HOURS TOPICAL PATCH TD SCH (10:46)
[2021-02-14] MEDS: PRENATAL VITAMINS W/ FOLIC ACID TABLET (FP) PO SCH (10:46)
[2021-02-14] MEDS: hydrOXYzine PAMOATE 25 MG CAPSULE (FP) PO PRN ×2 (10:47→21:37)
[2021-02-14] MEDS: NICOTINE 10 MG CARTRIDGE (INHALER) IH PRN ×3 (10:47→21:36)
[2021-02-14] MEDS: ACETAMINOPHEN 325 MG TABLET (FP) PO PRN (10:48)
[2021-02-14] MEDS ORDERED: BENZOCAINE 20 % GEL TUBE MM PRN (11:25)
[2021-02-14] MEDS: SELENIUM SULFIDE 2.5% LOTION 4 OZ. TP SCH (14:09)
[2021-02-14] MEDS: MELATONIN 5 MG TABLETS PO SCH (21:35)
[2021-02-14] MEDS: THIAMINE HCL 100 MG TABLET (FP) PO SCH (21:35)
[2021-02-14] MEDS: traZODone HCL 50 MG TABLET (FP) PO SCH (21:35)
[2021-02-15] MEDS ORDERED: methaDONE HCL 40 MG DISPERSABLE TABLET ONE (06:08)
[2021-02-15] MEDS ORDERED: methaDONE HCL 10 MG TABLET ONE (06:08)
[2021-02-15] MEDS: GABAPENTIN 100 MG CAPSULE PO SCH ×3 (06:08→21:46)
[2021-02-15] MEDS: hydrOXYzine PAMOATE 25 MG CAPSULE (FP) PO PRN (10:42)
[2021-02-15] MEDS: PRENATAL VITAMINS W/ FOLIC ACID TABLET (FP) PO SCH (10:42)
[2021-02-15] MEDS: SELENIUM SULFIDE 2.5% LOTION 4 OZ. TP SCH (10:42)
[2021-02-15] MEDS: NICOTINE 10 MG CARTRIDGE (INHALER) IH PRN ×2 (10:42→21:48)
[2021-02-15] MEDS: DOCUSATE SODIUM 100 MG CAPSULE (FP) PO PRN (10:42)
[2021-02-15] MEDS: NICOTINE 7 MG/24 HOURS TOPICAL PATCH TD SCH (10:42)
[2021-02-15] MEDS: ACETAMINOPHEN 325 MG TABLET (FP) PO PRN (19:22)
[2021-02-15] MEDS: traZODone HCL 50 MG TABLET (FP) PO SCH (21:46)
[2021-02-15] MEDS: THIAMINE HCL 100 MG TABLET (FP) PO SCH (21:46)
[2021-02-15] MEDS: MELATONIN 5 MG TABLETS PO SCH (21:46)
[2021-02-16] MEDS ORDERED: methaDONE HCL 10 MG TABLET ONE (03:38)
[2021-02-16] MEDS ORDERED: methaDONE HCL 40 MG DISPERSABLE TABLET ONE (03:39)
[2021-02-16] MEDS: GABAPENTIN 100 MG CAPSULE PO SCH ×3 (06:26→21:23)
[2021-02-16] MEDS: DOCUSATE SODIUM 100 MG CAPSULE (FP) PO PRN (10:47)
[2021-02-16] MEDS: PRENATAL VITAMINS W/ FOLIC ACID TABLET (FP) PO SCH (10:47)
[2021-02-16] MEDS: NICOTINE 7 MG/24 HOURS TOPICAL PATCH TD SCH (10:47)
[2021-02-16] MEDS: SELENIUM SULFIDE 2.5% LOTION 4 OZ. TP SCH (10:48)
[2021-02-16] MEDS: hydrOXYzine PAMOATE 25 MG CAPSULE (FP) PO PRN ×2 (10:49→21:24)
[2021-02-16] MEDS: NICOTINE 10 MG CARTRIDGE (INHALER) IH PRN ×2 (10:50→21:25)
[2021-02-16] MEDS: traZODone HCL 50 MG TABLET (FP) PO SCH (21:22)
[2021-02-16] MEDS: MELATONIN 5 MG TABLETS PO SCH (21:23)
[2021-02-16] MEDS: THIAMINE HCL 100 MG TABLET (FP) PO SCH (21:23)
[2021-02-17] MEDS ORDERED: methaDONE HCL 40 MG DISPERSABLE TABLET ONE (05:35)
[2021-02-17] MEDS ORDERED: methaDONE HCL 10 MG TABLET ONE (05:35)
[2021-02-17] MEDS: GABAPENTIN 100 MG CAPSULE PO SCH ×3 (06:27→21:23)
[2021-02-17] MEDS: PRENATAL VITAMINS W/ FOLIC ACID TABLET (FP) PO SCH (10:16)
[2021-02-17] MEDS: hydrOXYzine PAMOATE 25 MG CAPSULE (FP) PO PRN ×2 (10:17→21:24)
[2021-02-17] MEDS: SELENIUM SULFIDE 2.5% LOTION 4 OZ. TP SCH (10:17)
[2021-02-17] MEDS: NICOTINE 7 MG/24 HOURS TOPICAL PATCH TD SCH (10:17)
[2021-02-17] MEDS: NICOTINE 10 MG CARTRIDGE (INHALER) IH PRN ×2 (10:18→21:25)
[2021-02-17] MEDS: traZODone HCL 50 MG TABLET (FP) PO SCH (21:23)
[2021-02-17] MEDS: THIAMINE HCL 100 MG TABLET (FP) PO SCH (21:25)
[2021-02-17] MEDS: MELATONIN 5 MG TABLETS PO SCH (21:25)
[2021-02-18] MEDS ORDERED: methaDONE HCL 10 MG TABLET ONE (03:57)
[2021-02-18] MEDS ORDERED: methaDONE HCL 40 MG DISPERSABLE TABLET ONE (03:57)
[2021-02-18] MEDS: GABAPENTIN 100 MG CAPSULE PO SCH ×3 (06:18→21:39)
[2021-02-18] MEDS: PRENATAL VITAMINS W/ FOLIC ACID TABLET (FP) PO SCH (09:55)
[2021-02-18] MEDS: NICOTINE 7 MG/24 HOURS TOPICAL PATCH TD SCH (09:56)
[2021-02-18] MEDS: SELENIUM SULFIDE 2.5% LOTION 4 OZ. TP SCH (09:57)
[2021-02-18] MEDS: NICOTINE 10 MG CARTRIDGE (INHALER) IH PRN ×2 (09:58→21:40)
[2021-02-18] MEDS: hydrOXYzine PAMOATE 25 MG CAPSULE (FP) PO PRN ×2 (13:49→21:39)
[2021-02-18] MEDS: MELATONIN 5 MG TABLETS PO SCH (21:39)
[2021-02-18] MEDS: traZODone HCL 50 MG TABLET (FP) PO SCH (21:39)
[2021-02-18] MEDS: THIAMINE HCL 100 MG TABLET (FP) PO SCH (21:39)
[2021-02-19] MEDS ORDERED: methaDONE HCL 40 MG DISPERSABLE TABLET ONE (03:53)
[2021-02-19] MEDS ORDERED: methaDONE HCL 10 MG TABLET ONE (03:53)
[2021-02-19] MEDS: GABAPENTIN 100 MG CAPSULE PO SCH ×3 (06:17→21:34)
[2021-02-19] MEDS: hydrOXYzine PAMOATE 25 MG CAPSULE (FP) PO PRN ×2 (10:12→21:35)
[2021-02-19] MEDS: PRENATAL VITAMINS W/ FOLIC ACID TABLET (FP) PO SCH (10:12)
[2021-02-19] MEDS: NICOTINE 10 MG CARTRIDGE (INHALER) IH PRN ×2 (10:13→21:35)
[2021-02-19] MEDS: SELENIUM SULFIDE 2.5% LOTION 4 OZ. TP SCH (10:14)
[2021-02-19] MEDS: NICOTINE 7 MG/24 HOURS TOPICAL PATCH TD SCH (10:14)
[2021-02-19] MEDS: traZODone HCL 50 MG TABLET (FP) PO SCH (21:34)
[2021-02-19] MEDS: THIAMINE HCL 100 MG TABLET (FP) PO SCH (21:34)
[2021-02-19] MEDS: MELATONIN 5 MG TABLETS PO SCH (21:35)
[2021-02-20] MEDS ORDERED: methaDONE HCL 10 MG TABLET ONE (03:28)
[2021-02-20] MEDS ORDERED: methaDONE HCL 40 MG DISPERSABLE TABLET ONE (03:28)
[2021-02-20] MEDS: GABAPENTIN 100 MG CAPSULE PO SCH ×3 (06:15→21:48)
[2021-02-20] MEDS: PRENATAL VITAMINS W/ FOLIC ACID TABLET (FP) PO SCH (10:09)
[2021-02-20] MEDS: NICOTINE 7 MG/24 HOURS TOPICAL PATCH TD SCH (10:09)
[2021-02-20] MEDS: SELENIUM SULFIDE 2.5% LOTION 4 OZ. TP SCH (10:10)
[2021-02-20] MEDS: hydrOXYzine PAMOATE 25 MG CAPSULE (FP) PO PRN ×2 (10:11→21:49)
[2021-02-20] MEDS: NICOTINE 10 MG CARTRIDGE (INHALER) IH PRN ×2 (10:12→21:49)
[2021-02-20] MEDS: MELATONIN 5 MG TABLETS PO SCH (21:48)
[2021-02-20] MEDS: THIAMINE HCL 100 MG TABLET (FP) PO SCH (21:48)
[2021-02-20] MEDS: traZODone HCL 50 MG TABLET (FP) PO SCH (21:48)
[2021-02-21] MEDS ORDERED: methaDONE HCL 40 MG DISPERSABLE TABLET ONE (03:59)
[2021-02-21] MEDS ORDERED: methaDONE HCL 10 MG TABLET ONE (03:59)
[2021-02-21] MEDS: GABAPENTIN 100 MG CAPSULE PO SCH (06:36)
[2021-02-21 07:26] VITALS: BP 98/55; PULSE 62; TEMP 97.6
[2021-02-21] MEDS ORDERED: TOBRAMYCIN 0.3% OPHTH SOLN 5 ML BOTTLE OU SCH (09:30)
[2021-02-21] MEDS: NICOTINE 7 MG/24 HOURS TOPICAL PATCH TD SCH (10:21)
[2021-02-21] MEDS: PRENATAL VITAMINS W/ FOLIC ACID TABLET (FP) PO SCH (10:21)
[2021-02-21] MEDS: DOCUSATE SODIUM 100 MG CAPSULE (FP) PO PRN (10:22)
[2021-02-21] MEDS: hydrOXYzine PAMOATE 25 MG CAPSULE (FP) PO PRN (10:22)
[2021-02-21] MEDS: ACETAMINOPHEN 325 MG TABLET (FP) PO PRN (10:22)
[2021-02-21] MEDS: SELENIUM SULFIDE 2.5% LOTION 4 OZ. TP SCH (10:22)
== END 2021-02-21 10:30 | disposition home or self-care (01) | DRG 772 ==
LOC: YASAS 14:52 → Y5N 14:53
PROVIDERS: ADMIT Allergy & Immunology; ATTEND Allergy & Immunology
PROC: HZ42ZZZ Group Counseling for Substance Abuse Treatment, Cognitive-Behavioral (ICD-10-PCS; principal; 2021-02-07)
DX: F10.20 Alcohol dependence, uncomplicated (principal); F11.20 Opioid dependence, uncomplicated; F13.20 Sedative, hypnotic or anxiolytic dependence, uncomplicated; F14.20 Cocaine dependence, uncomplicated; F12.20 Cannabis dependence, uncomplicated; F17.210 Nicotine dependence, cigarettes, uncomplicated; F39 Unspecified mood [affective] disorder; H54.40 Blindness, one eye, unspecified eye; K02.9 Dental caries, unspecified; L21.0 Seborrhea capitis; R73.03 Prediabetes; Z56.0 Unemployment, unspecified
CPT/HCPCS: 36415; 82962; 87389

== ENCOUNTER 2021-05-15 16:58 | Inpatient (IN) | payer OTHER ==
[2021-05-15 18:43] VITALS: BMI 27.8
[2021-05-15] MEDS ORDERED: ONDANSETRON *ODT* 4 MG TABLET SL PRN (19:14)
[2021-05-15] MEDS ORDERED: NICOTINE POLACRILEX 2 MG GUM BUC PRN (19:14)
[2021-05-15] MEDS ORDERED: MAGNESIUM CITRATE 300 ML BOTTLE PO PRN (19:14)
[2021-05-15] MEDS ORDERED: LOPERAMIDE HCL 2 MG CAPSULE PO PRN (19:14)
[2021-05-15] MEDS ORDERED: ACETAMINOPHEN 325 MG TABLET (FP) PO PRN (19:14)
[2021-05-15] MEDS ORDERED: MENTHOL/PHENOL 1 EACH UD MM PRN (19:14)
[2021-05-15] MEDS ORDERED: P-EPHED 60MG/TRIPROLIDI 2.5MG TABLET PO PRN (19:14)
[2021-05-15] MEDS ORDERED: IBUPROFEN 400 MG TABLET (FP) PO PRN (19:14)
[2021-05-15] MEDS ORDERED: NALOXONE HCL 0.4 MG/ML VIAL IM PRN (19:14)
[2021-05-15] MEDS ORDERED: BISMUTH SUBSALICYLATE 524 MG/30 ML PO PRN (19:14)
[2021-05-15] MEDS ORDERED: MAG HYDROX/AL HYDROX/SIMETH 30 ML UNIT-DOSE CUP PO PRN (19:14)
[2021-05-15] MEDS ORDERED: NALOXONE (NARCAN) HCL 4 MG/0.1 ML SPRAY NS PRN (19:14)
[2021-05-15] MEDS ORDERED: MAGNESIUM HYDROX 2400MG/30ML ORAL SUSPENSION 30 ML CUP PO PRN (19:14)
[2021-05-15] MEDS ORDERED: diazePAM 5 MG TABLET ONE (21:53)
[2021-05-15] MEDS: THIAMINE HCL 100 MG TABLET (FP) PO SCH (21:55)
[2021-05-15] MEDS: MELATONIN 5 MG TABLETS PO SCH (21:56)
[2021-05-15] MEDS: diazePAM 5 MG TABLET PO SCH (21:59)
[2021-05-15] MEDS ORDERED: hydrOXYzine PAMOATE 25 MG CAPSULE (FP) PO SCH (22:00)
[2021-05-15] MEDS: hydrOXYzine PAMOATE 25 MG CAPSULE (FP) PO PRN (22:39)
[2021-05-15] MEDS: METHOCARBAMOL 500 MG TABLET PO PRN (22:39)
[2021-05-15] MEDS: diazePAM 5 MG TABLET PO PRN (23:53)
[2021-05-16] MEDS: diazePAM 5 MG TABLET PO SCH ×4 (05:37→23:06)
[2021-05-16] MEDS: diazePAM 5 MG TABLET PO PRN ×3 (08:01→20:47)
[2021-05-16] MEDS ORDERED: methaDONE HCL 10 MG TABLET PO ONE (08:53)
[2021-05-16] MEDS ORDERED: methaDONE HCL 10 MG TABLET ONE (09:48)
[2021-05-16] MEDS ORDERED: methaDONE HCL 40 MG DISPERSABLE TABLET ONE (09:49)
[2021-05-16 09:56] LABS: HEMATOCRIT 32.4 % (32.4-45.2); HEMOGLOBIN 11.2 GM/dL (10.7-15.3); MCH 30.1 pg (25.7-33.7); MCHC 34.4 g/dl (32.0-36.0); MEAN CELL VOLUME 87.6 fl (80-96); MEAN PLT VOLUME 9.2 fl (7.5-11.1); PLATELET COUNT 183 10^3/uL (134-434); RDW 12.9 % (11.6-15.6); WHITE BLOOD COUNT 6.1 K/mm3 (4.0-10.0)
[2021-05-16 09:58] LABS: CALCIUM 8.6 mg/dL (8.5-10.1)
[2021-05-16 09:59] LABS: ALBUMIN 3.1 g/dl (3.4-5.0); BLOOD UREA NITROGEN 14.2 mg/dL (7-18)
[2021-05-16 10:02] LABS: CREATININE 0.9 mg/dL (0.55-1.3)
[2021-05-16 10:04] LABS: BILIRUBIN,TOTAL 0.5 mg/dL (0.2-1); TOT PROT 6.5 g/dl (6.4-8.2)
[2021-05-16] MEDS: PRENATAL VITAMINS W/ FOLIC ACID TABLET (FP) PO SCH (10:38)
[2021-05-16] MEDS: hydrOXYzine PAMOATE 25 MG CAPSULE (FP) PO PRN (11:57)
[2021-05-16] MEDS: METHOCARBAMOL 500 MG TABLET PO PRN (11:57)
[2021-05-16] MEDS ORDERED: traZODone HCL 50 MG TABLET (FP) PO PRN (13:26)
[2021-05-16] MEDS: GABAPENTIN 100 MG CAPSULE PO SCH ×2 (15:44→21:05)
[2021-05-16] MEDS: ACETAMINOPHEN 325 MG TABLET (FP) PO PRN (17:59)
[2021-05-16] MEDS: NICOTINE 10 MG CARTRIDGE (INHALER) IH PRN (18:27)
[2021-05-16] MEDS: MELATONIN 5 MG TABLETS PO SCH (21:05)
[2021-05-16] MEDS: THIAMINE HCL 100 MG TABLET (FP) PO SCH (21:06)
[2021-05-17] MEDS ORDERED: methaDONE HCL 10 MG TABLET ONE (04:09)
[2021-05-17] MEDS ORDERED: methaDONE HCL 40 MG DISPERSABLE TABLET ONE (04:10)
[2021-05-17] MEDS: GABAPENTIN 100 MG CAPSULE PO SCH ×3 (05:25→21:49)
[2021-05-17] MEDS: diazePAM 5 MG TABLET PO PRN ×4 (05:27→22:51)
[2021-05-17] MEDS ORDERED: methaDONE HCL 10 MG TABLET PO SCH (06:00)
[2021-05-17] MEDS: diazePAM 5 MG TABLET PO SCH ×3 (06:26→21:49)
[2021-05-17] MEDS: PRENATAL VITAMINS W/ FOLIC ACID TABLET (FP) PO SCH (10:09)
[2021-05-17] MEDS: ACETAMINOPHEN 325 MG TABLET (FP) PO PRN (10:11)
[2021-05-17] MEDS: NICOTINE 10 MG CARTRIDGE (INHALER) IH PRN ×2 (13:31→21:51)
[2021-05-17 14:08] LABS: URINE APPEARANCE CLEAR; URINE BILIRUBIN NEGATIVE (NEGATIVE); URINE COLOR YELLOW; URINE GLUCOSE (UA) NEGATIVE (NEGATIVE); URINE KETONE NEGATIVE (NEGATIVE); URINE LEUK ESTERASE NEGATIVE (NEGATIVE); URINE NITRITE NEGATIVE (NEGATIVE); URINE PROTEIN NEGATIVE (NEGATIVE); URINE UROBILINOGEN 0.2 mg/dL (0.2-1.0)
[2021-05-17] MEDS: hydrOXYzine PAMOATE 25 MG CAPSULE (FP) PO PRN (18:12)
[2021-05-17] MEDS: MELATONIN 5 MG TABLETS PO SCH (21:49)
[2021-05-17] MEDS: THIAMINE HCL 100 MG TABLET (FP) PO SCH (21:49)
[2021-05-17] MEDS: METHOCARBAMOL 500 MG TABLET PO PRN (22:53)
[2021-05-18] MEDS ORDERED: methaDONE HCL 10 MG TABLET ONE (04:42)
[2021-05-18] MEDS ORDERED: methaDONE HCL 40 MG DISPERSABLE TABLET ONE (04:43)
[2021-05-18] MEDS: GABAPENTIN 100 MG CAPSULE PO SCH ×3 (06:11→21:57)
[2021-05-18] MEDS: diazePAM 5 MG TABLET PO SCH ×2 (06:12→17:35)
[2021-05-18] MEDS: diazePAM 5 MG TABLET PO PRN ×2 (07:44→15:02)
[2021-05-18] MEDS: PRENATAL VITAMINS W/ FOLIC ACID TABLET (FP) PO SCH (10:27)
[2021-05-18] MEDS: hydrOXYzine PAMOATE 25 MG CAPSULE (FP) PO PRN ×3 (10:28→21:55)
[2021-05-18 14:08] LABS: SARS-CoV-2 NAA Not Detected (Not Detected)
[2021-05-18] MEDS: NICOTINE 10 MG CARTRIDGE (INHALER) IH PRN (17:37)
[2021-05-18] MEDS: METHOCARBAMOL 500 MG TABLET PO PRN (20:14)
[2021-05-18] MEDS: MELATONIN 5 MG TABLETS PO SCH (21:54)
[2021-05-18] MEDS: THIAMINE HCL 100 MG TABLET (FP) PO SCH (21:57)
[2021-05-19] MEDS ORDERED: methaDONE HCL 10 MG TABLET ONE (03:53)
[2021-05-19] MEDS ORDERED: methaDONE HCL 40 MG DISPERSABLE TABLET ONE (03:53)
[2021-05-19] MEDS: GABAPENTIN 100 MG CAPSULE PO SCH (05:38)
[2021-05-19] MEDS ORDERED: diazePAM 5 MG TABLET PO ONE (06:00)
[2021-05-19 08:51] VITALS: BP 100/60; PULSE 72; TEMP 96.7
== END 2021-05-19 09:24 | disposition other institution (70) | DRG 773 ==
LOC: YASAS 16:58 → Y3N 21:26
PROVIDERS: ADMIT Allergy & Immunology; ATTEND Allergy & Immunology
PROC: HZ2ZZZZ Detoxification Services for Substance Abuse Treatment (ICD-10-PCS; principal; 2021-05-15)
DX: F13.230 Sedative, hypnotic or anxiolytic dependence with withdrawal, uncomplicated (principal); F11.20 Opioid dependence, uncomplicated; F14.20 Cocaine dependence, uncomplicated; F12.20 Cannabis dependence, uncomplicated; F17.210 Nicotine dependence, cigarettes, uncomplicated; F19.24 Other psychoactive substance dependence with psychoactive substance-induced mood disorder; F32.A Depression, unspecified; G47.00 Insomnia, unspecified; H54.62 Unqualified visual loss, left eye, normal vision right eye; Z86.19 Personal history of other infectious and parasitic diseases; Z56.0 Unemployment, unspecified; Z59.01 Sheltered homelessness; Z91.410 Personal history of adult physical and sexual abuse
CPT/HCPCS: 36415; 80053; 81003; 85027; 86780; 87811; C9803; U0003; U0005

== ENCOUNTER 2021-07-27 16:42 | Inpatient (IN) | payer OTHER ==
[2021-07-27 18:43] VITALS: BMI 32.1
[2021-07-27] MEDS ORDERED: LOPERAMIDE HCL 2 MG CAPSULE PO PRN (20:13)
[2021-07-27] MEDS ORDERED: ONDANSETRON *ODT* 4 MG TABLET SL PRN (20:13)
[2021-07-27] MEDS ORDERED: DICYCLOMINE HCL 10 MG CAPSULE PO PRN (20:13)
[2021-07-27] MEDS ORDERED: P-EPHED 60MG/TRIPROLIDI 2.5MG TABLET PO PRN (20:13)
[2021-07-27] MEDS ORDERED: BISMUTH SUBSALICYLATE 524 MG/30 ML PO PRN (20:13)
[2021-07-27] MEDS ORDERED: MAGNESIUM CITRATE 300 ML BOTTLE PO PRN (20:13)
[2021-07-27] MEDS ORDERED: NICOTINE 10 MG CARTRIDGE (INHALER) IH PRN (20:13)
[2021-07-27] MEDS ORDERED: MAGNESIUM HYDROX 2400MG/30ML ORAL SUSPENSION 30 ML CUP PO PRN (20:13)
[2021-07-27] MEDS ORDERED: BENZOCAINE/MENTHOL (CHLORASEPTIC ) LOZENGE MM PRN (20:13)
[2021-07-27] MEDS ORDERED: ACETAMINOPHEN 325 MG TABLET (FP) PO PRN (20:13)
[2021-07-27] MEDS ORDERED: IBUPROFEN 400 MG TABLET (FP) PO PRN (20:13)
[2021-07-27] MEDS ORDERED: MAG HYDROX/AL HYDROX/SIMETH 30 ML UNIT-DOSE CUP PO PRN (20:13)
[2021-07-28] MEDS: diazePAM 5 MG TABLET PO SCH ×4 (08:00→22:40)
[2021-07-28] MEDS: diazePAM 5 MG TABLET PO PRN ×3 (09:52→20:36)
[2021-07-28 10:02] LABS: HEMATOCRIT 35.6 % (32.4-45.2); HEMOGLOBIN 11.6 GM/dL (10.7-15.3); MCH 28.7 pg (25.7-33.7); MCHC 32.6 g/dl (32.0-36.0); MEAN CELL VOLUME 88.2 fl (80-96); MEAN PLT VOLUME 8.2 fl (7.5-11.1); PLATELET COUNT 327 10^3/uL (134-434); RBC 4.04 M/mm3 (3.60-5.2); RDW 12.7 % (11.6-15.6); WHITE BLOOD COUNT 11.3 K/mm3 (4.0-10.0)
[2021-07-28 10:04] LABS: ALBUMIN 3.2 g/dl (3.4-5.0); BLOOD UREA NITROGEN 11.2 mg/dL (7-18)
[2021-07-28 10:07] LABS: CREATININE 0.8 mg/dL (0.55-1.3)
[2021-07-28 10:08] LABS: BILIRUBIN,TOTAL 0.2 mg/dL (0.2-1); TOT PROT 7.3 g/dl (6.4-8.2)
[2021-07-28] MEDS ORDERED: BENZOCAINE/MENTH/CETYLPYRD CL 1 EACH LOZENGE MM PRN (11:44)
[2021-07-28] MEDS: METHOCARBAMOL 500 MG TABLET PO PRN (14:56)
[2021-07-28] MEDS: methaDONE HCL 40 MG DISPERSABLE TABLET PO SCH (14:56)
[2021-07-28] MEDS: PRENATAL VITAMINS W/ FOLIC ACID TABLET (FP) PO SCH (14:57)
[2021-07-28] MEDS: hydrOXYzine PAMOATE 25 MG CAPSULE (FP) PO PRN (20:35)
[2021-07-28] MEDS: NICOTINE POLACRILEX 2 MG GUM BUC PRN (20:36)
[2021-07-28] MEDS: traZODone HCL 50 MG TABLET (FP) PO SCH (22:38)
[2021-07-28] MEDS: GABAPENTIN 100 MG CAPSULE PO SCH (22:38)
[2021-07-28] MEDS: THIAMINE HCL 100 MG TABLET (FP) PO SCH (22:39)
[2021-07-29] MEDS: diazePAM 5 MG TABLET PO PRN ×3 (06:38→19:57)
[2021-07-29] MEDS: methaDONE HCL 40 MG DISPERSABLE TABLET PO SCH (06:38)
[2021-07-29] MEDS: GABAPENTIN 100 MG CAPSULE PO SCH ×4 (06:39→22:43)
[2021-07-29] MEDS: METHOCARBAMOL 500 MG TABLET PO PRN ×2 (06:39→22:43)
[2021-07-29] MEDS: diazePAM 5 MG TABLET PO SCH ×4 (07:31→22:44)
[2021-07-29] MEDS: PRENATAL VITAMINS W/ FOLIC ACID TABLET (FP) PO SCH (10:13)
[2021-07-29] MEDS: NICOTINE POLACRILEX 2 MG GUM BUC PRN ×4 (15:36→22:47)
[2021-07-29] MEDS: THIAMINE HCL 100 MG TABLET (FP) PO SCH ×2 (17:28→22:43)
[2021-07-29] MEDS: MELATONIN 5 MG TABLETS PO PRN (22:43)
[2021-07-29] MEDS: traZODone HCL 50 MG TABLET (FP) PO SCH (22:43)
[2021-07-29] MEDS: ACETAMINOPHEN 325 MG TABLET (FP) PO PRN (22:44)
[2021-07-30] MEDS: diazePAM 5 MG TABLET PO SCH ×2 (05:36→17:56)
[2021-07-30] MEDS: methaDONE HCL 40 MG DISPERSABLE TABLET PO SCH (05:36)
[2021-07-30] MEDS: GABAPENTIN 100 MG CAPSULE PO SCH ×3 (05:37→22:32)
[2021-07-30] MEDS: PRENATAL VITAMINS W/ FOLIC ACID TABLET (FP) PO SCH (10:42)
[2021-07-30] MEDS: NICOTINE POLACRILEX 2 MG GUM BUC PRN ×3 (10:45→18:04)
[2021-07-30] MEDS: diazePAM 5 MG TABLET PO PRN (13:31)
[2021-07-30] MEDS: ACETAMINOPHEN 325 MG TABLET (FP) PO PRN (17:57)
[2021-07-30] MEDS: hydrOXYzine PAMOATE 25 MG CAPSULE (FP) PO PRN ×2 (17:59→22:33)
[2021-07-30] MEDS: METHOCARBAMOL 500 MG TABLET PO PRN (20:56)
[2021-07-30] MEDS: THIAMINE HCL 100 MG TABLET (FP) PO SCH (22:32)
[2021-07-30] MEDS: traZODone HCL 50 MG TABLET (FP) PO SCH (22:32)
[2021-07-30] MEDS: MELATONIN 5 MG TABLETS PO PRN (22:33)
[2021-07-31] MEDS: methaDONE HCL 40 MG DISPERSABLE TABLET PO SCH (05:54)
[2021-07-31] MEDS: GABAPENTIN 100 MG CAPSULE PO SCH ×3 (05:55→22:25)
[2021-07-31] MEDS ORDERED: diazePAM 5 MG TABLET PO ONE ×3 (06:00→22:00)
[2021-07-31] MEDS: PRENATAL VITAMINS W/ FOLIC ACID TABLET (FP) PO SCH (10:44)
[2021-07-31] MEDS: NICOTINE POLACRILEX 2 MG GUM BUC PRN ×2 (12:11→19:38)
[2021-07-31] MEDS: hydrOXYzine PAMOATE 25 MG CAPSULE (FP) PO PRN (12:11)
[2021-07-31] MEDS: METHOCARBAMOL 500 MG TABLET PO PRN (12:44)
[2021-07-31 15:08] LABS: HEMOGLOBIN 11.5 GM/dL (10.7-15.3); MCH 28.9 pg (25.7-33.7); MEAN CELL VOLUME 87.5 fl (80-96); MEAN PLT VOLUME 8.1 fl (7.5-11.1); PLATELET COUNT 324 10^3/uL (134-434); RDW 12.3 % (11.6-15.6); WHITE BLOOD COUNT 9.8 K/mm3 (4.0-10.0)
[2021-07-31 16:08] LABS: SARS-CoV-2 NAA Not Detected (Not Detected)
[2021-07-31] MEDS: THIAMINE HCL 100 MG TABLET (FP) PO SCH (22:25)
[2021-07-31] MEDS: traZODone HCL 50 MG TABLET (FP) PO SCH (22:26)
[2021-08-01] MEDS ORDERED: diazePAM 5 MG TABLET PO ONE (06:00)
[2021-08-01] MEDS: methaDONE HCL 40 MG DISPERSABLE TABLET PO SCH (06:04)
[2021-08-01] MEDS: GABAPENTIN 100 MG CAPSULE PO SCH (06:05)
[2021-08-01 08:53] VITALS: BP 94/66; PULSE 74; TEMP 96.9
== END 2021-08-01 09:45 | disposition other institution (70) | DRG 773 ==
LOC: YASAS 16:42 → Y3N 07-28 13:15
PROVIDERS: ADMIT Allergy & Immunology; ATTEND Surgery
PROC: HZ2ZZZZ Detoxification Services for Substance Abuse Treatment (ICD-10-PCS; principal; 2021-07-28)
DX: F10.230 Alcohol dependence with withdrawal, uncomplicated (principal); F11.20 Opioid dependence, uncomplicated; F13.20 Sedative, hypnotic or anxiolytic dependence, uncomplicated; F14.20 Cocaine dependence, uncomplicated; F12.20 Cannabis dependence, uncomplicated; F17.210 Nicotine dependence, cigarettes, uncomplicated; F31.9 Bipolar disorder, unspecified; F19.24 Other psychoactive substance dependence with psychoactive substance-induced mood disorder; E11.9 Type 2 diabetes mellitus without complications; G47.00 Insomnia, unspecified; B18.2 Chronic viral hepatitis C
CPT/HCPCS: 36415; 80053; 81025; 85027; 86780; C9803-CS; U0003; U0005

== ENCOUNTER 2022-06-20 17:27 | Inpatient (IN) | payer OTHER ==
[2022-06-20 18:24] VITALS: BMI 32.1
[2022-06-20] MEDS ORDERED: hydrOXYzine PAMOATE 25 MG CAPSULE (FP) PO PRN (19:29)
[2022-06-20] MEDS ORDERED: NICOTINE POLACRILEX 2 MG GUM BUC PRN (19:29)
[2022-06-20] MEDS ORDERED: guaiFENesin 600 MG TABLET.ER (FP) PO PRN (19:29)
[2022-06-20] MEDS ORDERED: MAGNESIUM HYDROX 2400MG/30ML ORAL SUSPENSION 30 ML CUP PO PRN (19:29)
[2022-06-20] MEDS ORDERED: BENZONATATE 200 MG CAPSULE PO PRN (19:29)
[2022-06-20] MEDS ORDERED: ACETAMINOPHEN 325 MG TABLET (FP) PO PRN (19:29)
[2022-06-20] MEDS ORDERED: MAG HYDROX/AL HYDROX/SIMETH 30 ML UNIT-DOSE CUP PO PRN (19:29)
[2022-06-20] MEDS ORDERED: DICYCLOMINE HCL 10 MG CAPSULE PO PRN (19:29)
[2022-06-20] MEDS ORDERED: BISMUTH SUBSALICYLATE 524 MG/30 ML PO PRN (19:29)
[2022-06-20] MEDS ORDERED: ONDANSETRON *ODT* 4 MG TABLET SL PRN (19:29)
[2022-06-20] MEDS ORDERED: LOPERAMIDE HCL 2 MG CAPSULE PO PRN (19:29)
[2022-06-20] MEDS ORDERED: BENZOCAINE/MENTHOL (CHLORASEPTIC ) LOZENGE MM PRN (19:29)
[2022-06-20] MEDS ORDERED: NICOTINE 10 MG CARTRIDGE (INHALER) IH PRN (19:29)
[2022-06-20] MEDS ORDERED: IBUPROFEN 400 MG TABLET (FP) PO PRN (19:29)
[2022-06-20] MEDS ORDERED: NALOXONE HCL (KLOXXADO) 8 MG SPRAY NS PRN (19:29)
[2022-06-20] MEDS ORDERED: POLYETHYLENE GLYCOL (HEALTHYLAX) 3350 17 GM PACKET PO PRN (19:29)
[2022-06-20] MEDS ORDERED: P-EPHED 60MG/TRIPROLIDI 2.5MG TABLET PO PRN (19:29)
[2022-06-20] MEDS ORDERED: NALOXONE HCL 0.4 MG/ML VIAL IM PRN (19:29)
[2022-06-20] MEDS ORDERED: levETIRAcetam 500 MG TABLET (FP) PO SCH (22:00)
[2022-06-20] MEDS: MELATONIN 5 MG TABLETS PO PRN (22:40)
[2022-06-20] MEDS: THIAMINE HCL 100 MG TABLET (FP) PO SCH (22:40)
[2022-06-20] MEDS: diazePAM 5 MG TABLET PO PRN (22:40)
[2022-06-21] MEDS ORDERED: SENNOSIDES 8.6MG TABLET (FP) PO PRN (00:16)
[2022-06-21] MEDS: EYE OS SCH ×5 (00:44→22:52)
[2022-06-21] MEDS: CYCLOPENTOLATE 1% OS SCH ×2 (00:44→10:18)
[2022-06-21] MEDS: MOXIFLOXACIN 0.5% OS SCH ×3 (00:45→22:52)
[2022-06-21] MEDS: ERYTHROMYCIN 0.5% OPHTHALMIC OINTMENT 3.5 GM TUBE OS SCH ×3 (00:46→22:52)
[2022-06-21] MEDS: PREDNISOLONE 1% OS SCH ×3 (00:46→22:52)
[2022-06-21] MEDS: GABAPENTIN 300 MG CAPSULE PO SCH ×2 (00:46→10:17)
[2022-06-21] MEDS: METHOCARBAMOL 500 MG TABLET PO PRN ×2 (05:30→22:53)
[2022-06-21] MEDS: diazePAM 5 MG TABLET PO PRN ×2 (05:31→10:20)
[2022-06-21] MEDS: methaDONE HCL 40 MG DISPERSABLE TABLET PO SCH (07:43)
[2022-06-21] MEDS: PRENATAL VITAMINS W/ FOLIC ACID TABLET (FP) PO SCH (10:17)
[2022-06-21] MEDS: levETIRAcetam 500 MG TABLET (FP) PO SCH ×2 (10:17→22:51)
[2022-06-21] MEDS: IBUPROFEN 600 MG TABLET (FP) PO PRN ×2 (10:21→18:11)
[2022-06-21 10:28] LABS: HEMATOCRIT 36.4 % (32.4-45.2); HEMOGLOBIN 12.3 GM/dL (10.7-15.3); MCH 28.6 pg (25.7-33.7); MCHC 33.8 g/dl (32.0-36.0); MEAN CELL VOLUME 84.6 fl (80-96); MEAN PLT VOLUME 9.8 fl (7.5-11.1); PLATELET COUNT 220 10^3/uL (134-434); RBC 4.31 M/mm3 (3.60-5.2); RDW 13.3 % (11.6-15.6); WHITE BLOOD COUNT 6.4 K/mm3 (4.0-10.0)
[2022-06-21] MEDS: diazePAM 5 MG TABLET PO SCH ×3 (10:45→22:51)
[2022-06-21 10:54] LABS: CALCIUM 8.9 mg/dL (8.5-10.1)
[2022-06-21 10:55] LABS: ALBUMIN 3.3 g/dl (3.4-5.0); BLOOD UREA NITROGEN 16.1 mg/dL (7-18)
[2022-06-21 10:58] LABS: CREATININE 0.9 mg/dL (0.55-1.3)
[2022-06-21 11:01] LABS: BILIRUBIN,TOTAL 0.6 mg/dL (0.2-1)
[2022-06-21] MEDS: MELATONIN 5 MG TABLETS PO PRN (22:51)
[2022-06-21] MEDS: traZODone HCL 50 MG TABLET (FP) PO SCH (22:51)
[2022-06-21] MEDS: THIAMINE HCL 100 MG TABLET (FP) PO SCH (22:51)
[2022-06-21] MEDS: ACETAMINOPHEN 325 MG TABLET (FP) PO PRN (22:52)
[2022-06-22] MEDS: methaDONE HCL 40 MG DISPERSABLE TABLET PO SCH (05:16)
[2022-06-22] MEDS: diazePAM 5 MG TABLET PO SCH ×4 (05:16→22:48)
[2022-06-22] MEDS: ACETAMINOPHEN 325 MG TABLET (FP) PO PRN (05:18)
[2022-06-22] MEDS: PRENATAL VITAMINS W/ FOLIC ACID TABLET (FP) PO SCH (10:06)
[2022-06-22] MEDS: levETIRAcetam 500 MG TABLET (FP) PO SCH ×2 (10:08→22:47)
[2022-06-22] MEDS: EYE OS SCH ×3 (10:10→22:51)
[2022-06-22] MEDS: MOXIFLOXACIN 0.5% OS SCH ×2 (10:10→22:51)
[2022-06-22] MEDS: CYCLOPENTOLATE 1% OS SCH (10:10)
[2022-06-22] MEDS: PREDNISOLONE 1% OS SCH ×2 (10:11→22:51)
[2022-06-22] MEDS: ERYTHROMYCIN 0.5% OPHTHALMIC OINTMENT 3.5 GM TUBE OS SCH ×2 (10:11→22:50)
[2022-06-22] MEDS: diazePAM 5 MG TABLET PO PRN (19:34)
[2022-06-22] MEDS: traZODone HCL 50 MG TABLET (FP) PO SCH (22:47)
[2022-06-22] MEDS: THIAMINE HCL 100 MG TABLET (FP) PO SCH (22:48)
[2022-06-23] MEDS: diazePAM 5 MG TABLET PO SCH ×3 (05:50→22:10)
[2022-06-23] MEDS: methaDONE HCL 40 MG DISPERSABLE TABLET PO SCH (05:50)
[2022-06-23] MEDS: PRENATAL VITAMINS W/ FOLIC ACID TABLET (FP) PO SCH (11:00)
[2022-06-23] MEDS: EYE OS SCH ×3 (11:00→21:40)
[2022-06-23] MEDS: levETIRAcetam 500 MG TABLET (FP) PO SCH ×2 (11:00→22:09)
[2022-06-23] MEDS: ERYTHROMYCIN 0.5% OPHTHALMIC OINTMENT 3.5 GM TUBE OS SCH ×2 (11:00→21:20)
[2022-06-23] MEDS: CYCLOPENTOLATE 1% OS SCH (11:00)
[2022-06-23] MEDS: MOXIFLOXACIN 0.5% OS SCH ×2 (11:00→21:20)
[2022-06-23] MEDS: PREDNISOLONE 1% OS SCH ×2 (11:00→21:40)
[2022-06-23] MEDS: diazePAM 5 MG TABLET PO PRN ×2 (11:20→20:47)
[2022-06-23] MEDS: traZODone HCL 50 MG TABLET (FP) PO SCH (22:09)
[2022-06-23] MEDS: MELATONIN 5 MG TABLETS PO PRN (22:09)
[2022-06-23] MEDS: THIAMINE HCL 100 MG TABLET (FP) PO SCH (22:10)
[2022-06-23] MEDS: METHOCARBAMOL 500 MG TABLET PO PRN (22:10)
[2022-06-24] MEDS: methaDONE HCL 40 MG DISPERSABLE TABLET PO SCH (05:22)
[2022-06-24] MEDS: diazePAM 5 MG TABLET PO SCH ×2 (05:22→18:01)
[2022-06-24] MEDS: diazePAM 5 MG TABLET PO PRN (10:20)
[2022-06-24] MEDS: IBUPROFEN 600 MG TABLET (FP) PO PRN (10:55)
[2022-06-24] MEDS: levETIRAcetam 500 MG TABLET (FP) PO SCH ×2 (10:55→22:19)
[2022-06-24] MEDS: PRENATAL VITAMINS W/ FOLIC ACID TABLET (FP) PO SCH (10:56)
[2022-06-24] MEDS: EYE OS SCH ×3 (10:57→23:11)
[2022-06-24] MEDS: CYCLOPENTOLATE 1% OS SCH (10:57)
[2022-06-24] MEDS: ERYTHROMYCIN 0.5% OPHTHALMIC OINTMENT 3.5 GM TUBE OS SCH ×2 (10:57→23:10)
[2022-06-24] MEDS: MOXIFLOXACIN 0.5% OS SCH ×2 (10:57→23:10)
[2022-06-24] MEDS: PREDNISOLONE 1% OS SCH ×2 (10:57→23:11)
[2022-06-24] MEDS: MELATONIN 5 MG TABLETS PO PRN (22:18)
[2022-06-24] MEDS: THIAMINE HCL 100 MG TABLET (FP) PO SCH (22:19)
[2022-06-24] MEDS: traZODone HCL 50 MG TABLET (FP) PO SCH (22:19)
[2022-06-24] MEDS: METHOCARBAMOL 500 MG TABLET PO PRN (22:20)
[2022-06-25] MEDS: ACETAMINOPHEN 325 MG TABLET (FP) PO PRN (05:45)
[2022-06-25] MEDS: methaDONE HCL 40 MG DISPERSABLE TABLET PO SCH (05:45)
[2022-06-25] MEDS ORDERED: diazePAM 5 MG TABLET PO ONE (06:00)
[2022-06-25 08:47] VITALS: RESP 16
[2022-06-25] MEDS: levETIRAcetam 500 MG TABLET (FP) PO SCH (10:05)
[2022-06-25] MEDS: MOXIFLOXACIN 0.5% OS SCH (10:05)
[2022-06-25] MEDS: PRENATAL VITAMINS W/ FOLIC ACID TABLET (FP) PO SCH (10:05)
[2022-06-25] MEDS: PREDNISOLONE 1% OS SCH (10:06)
[2022-06-25] MEDS: EYE OS SCH ×2 (10:06→10:07)
[2022-06-25] MEDS: ERYTHROMYCIN 0.5% OPHTHALMIC OINTMENT 3.5 GM TUBE OS SCH (10:07)
[2022-06-25] MEDS: CYCLOPENTOLATE 1% OS SCH (10:07)
[2022-06-25 12:38] VITALS: BP 108/56; PULSE 55; TEMP 97.3
== END 2022-06-25 13:29 | disposition other institution (70) | DRG 773 ==
LOC: YASAS 17:27 → Y3N 20:15
PROVIDERS: ADMIT Allergy & Immunology; ATTEND Surgery
PROC: HZ2ZZZZ Detoxification Services for Substance Abuse Treatment (ICD-10-PCS; principal; 2022-06-20)
DX: F11.23 Opioid dependence with withdrawal (principal); F13.20 Sedative, hypnotic or anxiolytic dependence, uncomplicated; F10.20 Alcohol dependence, uncomplicated; F14.20 Cocaine dependence, uncomplicated; F12.20 Cannabis dependence, uncomplicated; F17.210 Nicotine dependence, cigarettes, uncomplicated; F19.24 Other psychoactive substance dependence with psychoactive substance-induced mood disorder; E11.9 Type 2 diabetes mellitus without complications; H54.62 Unqualified visual loss, left eye, normal vision right eye; Z87.828 Personal history of other (healed) physical injury and trauma; Z59.00 Homelessness unspecified; Z56.0 Unemployment, unspecified
CPT/HCPCS: 36415; 80053; 81025; 85027; 86780; 93005; 93010; C9803-CS; U0003; U0005

== ENCOUNTER 2022-06-25 13:56 | Inpatient (IN) | payer OTHER ==
[2022-06-25] MEDS ORDERED: hydrOXYzine PAMOATE 25 MG CAPSULE (FP) PO PRN (15:22)
[2022-06-25] MEDS ORDERED: BENZONATATE 200 MG CAPSULE PO PRN (15:22)
[2022-06-25] MEDS ORDERED: LOPERAMIDE HCL 2 MG CAPSULE PO PRN (15:22)
[2022-06-25] MEDS ORDERED: guaiFENesin 600 MG TABLET.ER (FP) PO PRN (15:22)
[2022-06-25] MEDS ORDERED: MAG HYDROX/AL HYDROX/SIMETH 30 ML UNIT-DOSE CUP PO PRN (15:22)
[2022-06-25] MEDS ORDERED: METHOCARBAMOL 500 MG TABLET PO PRN (15:22)
[2022-06-25] MEDS ORDERED: IBUPROFEN 600 MG TABLET (FP) PO PRN (15:22)
[2022-06-25] MEDS ORDERED: NALOXONE HCL (KLOXXADO) 8 MG SPRAY NS PRN (15:22)
[2022-06-25] MEDS ORDERED: IBUPROFEN 400 MG TABLET (FP) PO PRN (15:22)
[2022-06-25] MEDS ORDERED: NALOXONE HCL 0.4 MG/ML VIAL IVPUSH PRN (15:22)
[2022-06-25] MEDS ORDERED: POLYETHYLENE GLYCOL (HEALTHYLAX) 3350 17 GM PACKET PO PRN (15:22)
[2022-06-25] MEDS ORDERED: BENZOCAINE/MENTHOL (CHLORASEPTIC ) LOZENGE MM PRN (15:22)
[2022-06-25] MEDS: THIAMINE HCL 100 MG TABLET (FP) PO SCH (21:15)
[2022-06-25] MEDS: MELATONIN 5 MG TABLETS PO SCH (21:15)
[2022-06-25] MEDS: NICOTINE 10 MG CARTRIDGE (INHALER) IH PRN (21:16)
[2022-06-25] MEDS: ACETAMINOPHEN 325 MG TABLET (FP) PO PRN (21:17)
[2022-06-25] MEDS: prednisoLONE ACETATE 1% OPHTH SUSP 5 ML BOTTLE OS SCH (21:47)
[2022-06-25] MEDS: MOXIFLOXACIN 0.5% OS SCH (21:48)
[2022-06-25] MEDS: CYCLOPENTOLATE 1% OS SCH (21:48)
[2022-06-25] MEDS: ERYTHROMYCIN 0.5% OPHTHALMIC OINTMENT 3.5 GM TUBE OS SCH (21:48)
[2022-06-25] MEDS: EYE OS SCH ×2 (21:48)
[2022-06-26] MEDS ORDERED: ONDANSETRON 8 MG TABLET (FP) PO ONE (00:48)
[2022-06-26] MEDS ORDERED: ONDANSETRON *ODT* 4 MG TABLET SL ONE (01:15)
[2022-06-26] MEDS: methaDONE HCL 40 MG DISPERSABLE TABLET PO SCH (06:30)
[2022-06-26] MEDS ORDERED: ONDANSETRON *ODT* 4 MG TABLET SL PRN (08:15)
[2022-06-26] MEDS ORDERED: CYCLOPENTOLATE HCL 1% OPHTH SOLN 2 ML BOTTLE OS SCH (10:00)
[2022-06-26] MEDS ORDERED: ESCITALOPRAM OXALATE 10 MG TABLET PO SCH (10:00)
[2022-06-26] MEDS: PRENATAL VITAMINS W/ FOLIC ACID TABLET (FP) PO SCH (10:28)
[2022-06-26] MEDS ORDERED: COLLOIDAL OATMEAL 1 BAR EACH TP PRN (10:59)
[2022-06-26] MEDS: CYCLOPENTOLATE 1% OS SCH ×2 (11:41→22:47)
[2022-06-26] MEDS: prednisoLONE ACETATE 1% OPHTH SUSP 5 ML BOTTLE OS SCH ×2 (11:41→22:47)
[2022-06-26] MEDS: MOXIFLOXACIN 0.5% OS SCH ×2 (11:41→22:48)
[2022-06-26] MEDS: EYE OS SCH ×4 (11:41→22:48)
[2022-06-26] MEDS: ERYTHROMYCIN 0.5% OPHTHALMIC OINTMENT 3.5 GM TUBE OS SCH ×2 (11:42→22:47)
[2022-06-26] MEDS: GABAPENTIN 300 MG CAPSULE PO SCH ×2 (15:01→21:20)
[2022-06-26] MEDS: THIAMINE HCL 100 MG TABLET (FP) PO SCH (21:20)
[2022-06-26] MEDS: traZODone HCL 50 MG TABLET (FP) PO SCH (21:20)
[2022-06-26] MEDS: MELATONIN 5 MG TABLETS PO SCH (21:20)
[2022-06-27] MEDS: methaDONE HCL 40 MG DISPERSABLE TABLET PO SCH (06:27)
[2022-06-27] MEDS: GABAPENTIN 300 MG CAPSULE PO SCH ×3 (06:27→21:31)
[2022-06-27] MEDS: NICOTINE 10 MG CARTRIDGE (INHALER) IH PRN (10:13)
[2022-06-27] MEDS: PRENATAL VITAMINS W/ FOLIC ACID TABLET (FP) PO SCH (10:14)
[2022-06-27] MEDS: MOXIFLOXACIN 0.5% OS SCH ×2 (10:15→21:44)
[2022-06-27] MEDS: EYE OS SCH ×4 (10:15→21:44)
[2022-06-27] MEDS: ERYTHROMYCIN 0.5% OPHTHALMIC OINTMENT 3.5 GM TUBE OS SCH ×2 (10:15→21:43)
[2022-06-27] MEDS: prednisoLONE ACETATE 1% OPHTH SUSP 5 ML BOTTLE OS SCH ×2 (10:15→21:44)
[2022-06-27] MEDS: CYCLOPENTOLATE 1% OS SCH ×2 (10:15→21:44)
[2022-06-27] MEDS: ACETAMINOPHEN 325 MG TABLET (FP) PO PRN (10:16)
[2022-06-27] MEDS: THIAMINE HCL 100 MG TABLET (FP) PO SCH (21:31)
[2022-06-27] MEDS: traZODone HCL 50 MG TABLET (FP) PO SCH (21:31)
[2022-06-27] MEDS: MELATONIN 5 MG TABLETS PO SCH (21:32)
[2022-06-27] MEDS: hydrOXYzine PAMOATE 25 MG CAPSULE (FP) PO PRN (21:34)
[2022-06-28] MEDS: GABAPENTIN 300 MG CAPSULE PO SCH ×3 (06:32→21:46)
[2022-06-28] MEDS: methaDONE HCL 40 MG DISPERSABLE TABLET PO SCH (06:32)
[2022-06-28] MEDS: hydrOXYzine PAMOATE 25 MG CAPSULE (FP) PO PRN (06:32)
[2022-06-28] MEDS: prednisoLONE ACETATE 1% OPHTH SUSP 5 ML BOTTLE OS SCH ×2 (10:33→21:47)
[2022-06-28] MEDS: EYE OS SCH ×4 (10:33→21:47)
[2022-06-28] MEDS: MOXIFLOXACIN 0.5% OS SCH ×2 (10:33→21:47)
[2022-06-28] MEDS: CYCLOPENTOLATE 1% OS SCH ×2 (10:33→21:47)
[2022-06-28] MEDS: ERYTHROMYCIN 0.5% OPHTHALMIC OINTMENT 3.5 GM TUBE OS SCH ×2 (10:33→21:46)
[2022-06-28] MEDS: PRENATAL VITAMINS W/ FOLIC ACID TABLET (FP) PO SCH (10:34)
[2022-06-28] MEDS: NICOTINE POLACRILEX 2 MG GUM BUC PRN ×2 (16:03→19:40)
[2022-06-28] MEDS: NICOTINE 10 MG CARTRIDGE (INHALER) IH PRN (20:56)
[2022-06-28] MEDS: THIAMINE HCL 100 MG TABLET (FP) PO SCH (21:46)
[2022-06-28] MEDS: traZODone HCL 50 MG TABLET (FP) PO SCH (21:46)
[2022-06-28] MEDS: MELATONIN 5 MG TABLETS PO SCH (22:00)
[2022-06-29] MEDS: methaDONE HCL 40 MG DISPERSABLE TABLET PO SCH (06:26)
[2022-06-29] MEDS: GABAPENTIN 300 MG CAPSULE PO SCH ×3 (06:26→21:08)
[2022-06-29] MEDS: hydrOXYzine PAMOATE 25 MG CAPSULE (FP) PO PRN (06:28)
[2022-06-29] MEDS: PRENATAL VITAMINS W/ FOLIC ACID TABLET (FP) PO SCH (11:08)
[2022-06-29] MEDS: prednisoLONE ACETATE 1% OPHTH SUSP 5 ML BOTTLE OS SCH ×2 (11:08→22:35)
[2022-06-29] MEDS: MOXIFLOXACIN 0.5% OS SCH ×2 (11:09→22:35)
[2022-06-29] MEDS: ERYTHROMYCIN 0.5% OPHTHALMIC OINTMENT 3.5 GM TUBE OS SCH ×2 (11:09→22:35)
[2022-06-29] MEDS: EYE OS SCH ×4 (11:09→22:36)
[2022-06-29] MEDS: CYCLOPENTOLATE 1% OS SCH ×2 (11:09→22:36)
[2022-06-29] MEDS: NICOTINE POLACRILEX 2 MG GUM BUC PRN ×4 (11:19→21:09)
[2022-06-29] MEDS: MAGNESIUM HYDROX 2400MG/30ML ORAL SUSPENSION 30 ML CUP PO PRN (14:06)
[2022-06-29] MEDS: NICOTINE 10 MG CARTRIDGE (INHALER) IH PRN (17:39)
[2022-06-29] MEDS: THIAMINE HCL 100 MG TABLET (FP) PO SCH (21:08)
[2022-06-29] MEDS: traZODone HCL 50 MG TABLET (FP) PO SCH (21:08)
[2022-06-29] MEDS: MELATONIN 5 MG TABLETS PO SCH (21:08)
[2022-06-30] MEDS: methaDONE HCL 40 MG DISPERSABLE TABLET PO SCH (06:46)
[2022-06-30] MEDS: GABAPENTIN 300 MG CAPSULE PO SCH ×3 (06:46→21:14)
[2022-06-30] MEDS: PRENATAL VITAMINS W/ FOLIC ACID TABLET (FP) PO SCH (09:55)
[2022-06-30] MEDS: NICOTINE POLACRILEX 2 MG GUM BUC PRN ×3 (09:56→23:44)
[2022-06-30] MEDS: prednisoLONE ACETATE 1% OPHTH SUSP 5 ML BOTTLE OS SCH ×2 (10:31→22:30)
[2022-06-30] MEDS: MOXIFLOXACIN 0.5% OS SCH ×2 (10:31→22:30)
[2022-06-30] MEDS: EYE OS SCH ×4 (10:31→22:30)
[2022-06-30] MEDS: CYCLOPENTOLATE 1% OS SCH ×2 (10:31→22:30)
[2022-06-30] MEDS: ERYTHROMYCIN 0.5% OPHTHALMIC OINTMENT 3.5 GM TUBE OS SCH ×2 (10:31→22:30)
[2022-06-30] MEDS: traZODone HCL 50 MG TABLET (FP) PO SCH (21:14)
[2022-06-30] MEDS: MELATONIN 5 MG TABLETS PO SCH (21:14)
[2022-06-30] MEDS: THIAMINE HCL 100 MG TABLET (FP) PO SCH (21:14)
[2022-07-01] MEDS: methaDONE HCL 40 MG DISPERSABLE TABLET PO SCH (06:06)
[2022-07-01] MEDS: GABAPENTIN 300 MG CAPSULE PO SCH ×3 (06:06→22:08)
[2022-07-01] MEDS: NICOTINE POLACRILEX 2 MG GUM BUC PRN ×4 (06:06→22:09)
[2022-07-01] MEDS: PRENATAL VITAMINS W/ FOLIC ACID TABLET (FP) PO SCH (10:37)
[2022-07-01] MEDS: ERYTHROMYCIN 0.5% OPHTHALMIC OINTMENT 3.5 GM TUBE OS SCH ×2 (10:38→22:16)
[2022-07-01] MEDS: MOXIFLOXACIN 0.5% OS SCH ×2 (10:38→22:16)
[2022-07-01] MEDS: EYE OS SCH ×4 (10:38→22:16)
[2022-07-01] MEDS: prednisoLONE ACETATE 1% OPHTH SUSP 5 ML BOTTLE OS SCH ×2 (10:39→22:17)
[2022-07-01] MEDS: CYCLOPENTOLATE 1% OS SCH ×2 (10:39→22:16)
[2022-07-01] MEDS: NICOTINE 10 MG CARTRIDGE (INHALER) IH PRN (20:09)
[2022-07-01] MEDS: THIAMINE HCL 100 MG TABLET (FP) PO SCH (22:08)
[2022-07-01] MEDS: traZODone HCL 50 MG TABLET (FP) PO SCH (22:08)
[2022-07-01] MEDS: MELATONIN 5 MG TABLETS PO SCH (22:09)
[2022-07-02] MEDS: methaDONE HCL 40 MG DISPERSABLE TABLET PO SCH (06:38)
[2022-07-02] MEDS: GABAPENTIN 300 MG CAPSULE PO SCH ×3 (06:39→21:13)
[2022-07-02] MEDS: ERYTHROMYCIN 0.5% OPHTHALMIC OINTMENT 3.5 GM TUBE OS SCH ×2 (10:31→22:34)
[2022-07-02] MEDS: EYE OS SCH ×4 (10:32→22:35)
[2022-07-02] MEDS: prednisoLONE ACETATE 1% OPHTH SUSP 5 ML BOTTLE OS SCH ×2 (10:32→22:35)
[2022-07-02] MEDS: MOXIFLOXACIN 0.5% OS SCH ×2 (10:32→22:35)
[2022-07-02] MEDS: PRENATAL VITAMINS W/ FOLIC ACID TABLET (FP) PO SCH (10:32)
[2022-07-02] MEDS: CYCLOPENTOLATE 1% OS SCH ×2 (10:32→22:35)
[2022-07-02] MEDS: NICOTINE POLACRILEX 2 MG GUM BUC PRN ×2 (10:33→21:15)
[2022-07-02] MEDS: traZODone HCL 50 MG TABLET (FP) PO SCH (21:13)
[2022-07-02] MEDS: THIAMINE HCL 100 MG TABLET (FP) PO SCH (21:13)
[2022-07-02] MEDS: MELATONIN 5 MG TABLETS PO SCH (21:13)
[2022-07-03] MEDS: GABAPENTIN 300 MG CAPSULE PO SCH ×3 (06:01→21:32)
[2022-07-03] MEDS: methaDONE HCL 40 MG DISPERSABLE TABLET PO SCH (06:01)
[2022-07-03] MEDS: PRENATAL VITAMINS W/ FOLIC ACID TABLET (FP) PO SCH (10:00)
[2022-07-03] MEDS: NICOTINE 10 MG CARTRIDGE (INHALER) IH PRN (10:02)
[2022-07-03] MEDS: EYE OS SCH ×4 (10:03→22:34)
[2022-07-03] MEDS: MOXIFLOXACIN 0.5% OS SCH ×2 (10:03→22:33)
[2022-07-03] MEDS: prednisoLONE ACETATE 1% OPHTH SUSP 5 ML BOTTLE OS SCH ×2 (10:03→22:33)
[2022-07-03] MEDS: ERYTHROMYCIN 0.5% OPHTHALMIC OINTMENT 3.5 GM TUBE OS SCH ×2 (10:03→22:33)
[2022-07-03] MEDS: CYCLOPENTOLATE 1% OS SCH ×2 (10:04→22:34)
[2022-07-03] MEDS: THIAMINE HCL 100 MG TABLET (FP) PO SCH (21:32)
[2022-07-03] MEDS: traZODone HCL 50 MG TABLET (FP) PO SCH (21:32)
[2022-07-03] MEDS: MELATONIN 5 MG TABLETS PO SCH (21:33)
[2022-07-04] MEDS: methaDONE HCL 40 MG DISPERSABLE TABLET PO SCH (06:34)
[2022-07-04] MEDS: GABAPENTIN 300 MG CAPSULE PO SCH ×3 (06:34→21:09)
[2022-07-04] MEDS: PRENATAL VITAMINS W/ FOLIC ACID TABLET (FP) PO SCH (09:44)
[2022-07-04] MEDS: MOXIFLOXACIN 0.5% OS SCH ×2 (09:45→22:09)
[2022-07-04] MEDS: EYE OS SCH ×4 (09:45→22:10)
[2022-07-04] MEDS: prednisoLONE ACETATE 1% OPHTH SUSP 5 ML BOTTLE OS SCH ×2 (09:45→22:10)
[2022-07-04] MEDS: CYCLOPENTOLATE 1% OS SCH ×2 (09:45→22:10)
[2022-07-04] MEDS: ERYTHROMYCIN 0.5% OPHTHALMIC OINTMENT 3.5 GM TUBE OS SCH ×2 (09:45→22:09)
[2022-07-04] MEDS: NICOTINE POLACRILEX 2 MG GUM BUC PRN (21:09)
[2022-07-04] MEDS: THIAMINE HCL 100 MG TABLET (FP) PO SCH (21:09)
[2022-07-04] MEDS: traZODone HCL 50 MG TABLET (FP) PO SCH (21:09)
[2022-07-04] MEDS: MELATONIN 5 MG TABLETS PO SCH (21:09)
[2022-07-05] MEDS: methaDONE HCL 40 MG DISPERSABLE TABLET PO SCH (06:04)
[2022-07-05] MEDS: GABAPENTIN 300 MG CAPSULE PO SCH ×3 (06:04→21:38)
[2022-07-05] MEDS: PRENATAL VITAMINS W/ FOLIC ACID TABLET (FP) PO SCH (09:57)
[2022-07-05] MEDS: TOLNAFTATE 1% CREAM 15 GM TUBE TP SCH ×2 (09:58→23:17)
[2022-07-05] MEDS: NICOTINE POLACRILEX 2 MG GUM BUC PRN ×2 (09:59→21:39)
[2022-07-05] MEDS: ERYTHROMYCIN 0.5% OPHTHALMIC OINTMENT 3.5 GM TUBE OS SCH ×2 (10:00→23:15)
[2022-07-05] MEDS: MOXIFLOXACIN 0.5% OS SCH ×2 (10:00→23:17)
[2022-07-05] MEDS: prednisoLONE ACETATE 1% OPHTH SUSP 5 ML BOTTLE OS SCH ×2 (10:00→23:17)
[2022-07-05] MEDS: EYE OS SCH ×4 (10:00→23:17)
[2022-07-05] MEDS: CYCLOPENTOLATE 1% OS SCH ×2 (10:01→23:16)
[2022-07-05] MEDS: VITAMINS A AND D TOPICAL OINTMENT 60 GM TUBE TP SCH ×3 (10:46→17:39)
[2022-07-05] MEDS: traZODone HCL 50 MG TABLET (FP) PO SCH (21:38)
[2022-07-05] MEDS: THIAMINE HCL 100 MG TABLET (FP) PO SCH (21:38)
[2022-07-05] MEDS: MELATONIN 5 MG TABLETS PO SCH (21:38)
[2022-07-06] MEDS: VITAMINS A AND D TOPICAL OINTMENT 60 GM TUBE TP SCH ×4 (06:17→22:30)
[2022-07-06] MEDS: GABAPENTIN 300 MG CAPSULE PO SCH ×3 (06:18→21:19)
[2022-07-06] MEDS: methaDONE HCL 40 MG DISPERSABLE TABLET PO SCH (06:18)
[2022-07-06] MEDS: EYE OS SCH ×4 (10:15→22:29)
[2022-07-06] MEDS: CYCLOPENTOLATE 1% OS SCH ×2 (10:15→22:27)
[2022-07-06] MEDS: prednisoLONE ACETATE 1% OPHTH SUSP 5 ML BOTTLE OS SCH ×2 (10:15→22:28)
[2022-07-06] MEDS: ERYTHROMYCIN 0.5% OPHTHALMIC OINTMENT 3.5 GM TUBE OS SCH ×2 (10:15→22:29)
[2022-07-06] MEDS: MOXIFLOXACIN 0.5% OS SCH ×2 (10:15→22:29)
[2022-07-06] MEDS: PRENATAL VITAMINS W/ FOLIC ACID TABLET (FP) PO SCH (10:16)
[2022-07-06] MEDS: TOLNAFTATE 1% CREAM 15 GM TUBE TP SCH ×2 (10:17→22:30)
[2022-07-06] MEDS: NICOTINE POLACRILEX 2 MG GUM BUC PRN (10:17)
[2022-07-06] MEDS: traZODone HCL 50 MG TABLET (FP) PO SCH (21:19)
[2022-07-06] MEDS: MELATONIN 5 MG TABLETS PO SCH (21:19)
[2022-07-06] MEDS: THIAMINE HCL 100 MG TABLET (FP) PO SCH (21:19)
[2022-07-07] MEDS: VITAMINS A AND D TOPICAL OINTMENT 60 GM TUBE TP SCH ×4 (02:01→19:07)
[2022-07-07] MEDS: GABAPENTIN 300 MG CAPSULE PO SCH ×3 (06:02→21:48)
[2022-07-07] MEDS: methaDONE HCL 40 MG DISPERSABLE TABLET PO SCH (06:02)
[2022-07-07] MEDS: PRENATAL VITAMINS W/ FOLIC ACID TABLET (FP) PO SCH (09:57)
[2022-07-07] MEDS: TOLNAFTATE 1% CREAM 15 GM TUBE TP SCH ×2 (09:58→21:48)
[2022-07-07] MEDS: EYE OS SCH ×4 (09:59→23:16)
[2022-07-07] MEDS: MOXIFLOXACIN 0.5% OS SCH ×2 (09:59→23:15)
[2022-07-07] MEDS: prednisoLONE ACETATE 1% OPHTH SUSP 5 ML BOTTLE OS SCH ×2 (09:59→23:15)
[2022-07-07] MEDS: ERYTHROMYCIN 0.5% OPHTHALMIC OINTMENT 3.5 GM TUBE OS SCH ×2 (10:00→23:16)
[2022-07-07] MEDS: CYCLOPENTOLATE 1% OS SCH ×2 (11:28→23:16)
[2022-07-07] MEDS: MELATONIN 5 MG TABLETS PO SCH (21:48)
[2022-07-07] MEDS: traZODone HCL 50 MG TABLET (FP) PO SCH (21:48)
[2022-07-07] MEDS: THIAMINE HCL 100 MG TABLET (FP) PO SCH (21:48)
[2022-07-08] MEDS: VITAMINS A AND D TOPICAL OINTMENT 60 GM TUBE TP SCH ×4 (02:30→21:47)
[2022-07-08] MEDS: methaDONE HCL 40 MG DISPERSABLE TABLET PO SCH (06:01)
[2022-07-08] MEDS: GABAPENTIN 300 MG CAPSULE PO SCH ×3 (06:01→21:47)
[2022-07-08] MEDS: PRENATAL VITAMINS W/ FOLIC ACID TABLET (FP) PO SCH (10:13)
[2022-07-08] MEDS: TOLNAFTATE 1% CREAM 15 GM TUBE TP SCH ×2 (10:13→23:22)
[2022-07-08] MEDS: prednisoLONE ACETATE 1% OPHTH SUSP 5 ML BOTTLE OS SCH ×2 (10:52→23:22)
[2022-07-08] MEDS: CYCLOPENTOLATE 1% OS SCH ×2 (10:52→23:22)
[2022-07-08] MEDS: EYE OS SCH ×4 (10:52→23:22)
[2022-07-08] MEDS: ERYTHROMYCIN 0.5% OPHTHALMIC OINTMENT 3.5 GM TUBE OS SCH ×2 (10:53→23:23)
[2022-07-08] MEDS: MOXIFLOXACIN 0.5% OS SCH ×2 (10:53→23:22)
[2022-07-08] MEDS: MELATONIN 5 MG TABLETS PO SCH (21:47)
[2022-07-08] MEDS: traZODone HCL 50 MG TABLET (FP) PO SCH (21:47)
[2022-07-08] MEDS: THIAMINE HCL 100 MG TABLET (FP) PO SCH (21:47)
[2022-07-08] MEDS: NICOTINE POLACRILEX 2 MG GUM BUC PRN (21:49)
[2022-07-09] MEDS: VITAMINS A AND D TOPICAL OINTMENT 60 GM TUBE TP SCH ×4 (01:14→19:28)
[2022-07-09] MEDS: methaDONE HCL 40 MG DISPERSABLE TABLET PO SCH (05:34)
[2022-07-09] MEDS: GABAPENTIN 300 MG CAPSULE PO SCH ×3 (05:34→21:35)
[2022-07-09] MEDS: PRENATAL VITAMINS W/ FOLIC ACID TABLET (FP) PO SCH (10:02)
[2022-07-09] MEDS: TOLNAFTATE 1% CREAM 15 GM TUBE TP SCH ×2 (10:02→21:36)
[2022-07-09] MEDS: ERYTHROMYCIN 0.5% OPHTHALMIC OINTMENT 3.5 GM TUBE OS SCH ×2 (10:03→23:02)
[2022-07-09] MEDS: prednisoLONE ACETATE 1% OPHTH SUSP 5 ML BOTTLE OS SCH ×2 (10:03→23:03)
[2022-07-09] MEDS: EYE OS SCH ×4 (10:04→23:02)
[2022-07-09] MEDS: CYCLOPENTOLATE 1% OS SCH ×2 (10:04→23:02)
[2022-07-09] MEDS: MOXIFLOXACIN 0.5% OS SCH ×2 (10:04→23:02)
[2022-07-09] MEDS: NICOTINE POLACRILEX 2 MG GUM BUC PRN (13:30)
[2022-07-09] MEDS: MELATONIN 5 MG TABLETS PO SCH (21:34)
[2022-07-09] MEDS: traZODone HCL 50 MG TABLET (FP) PO SCH (21:34)
[2022-07-09] MEDS: THIAMINE HCL 100 MG TABLET (FP) PO SCH (21:35)
[2022-07-10] MEDS: VITAMINS A AND D TOPICAL OINTMENT 60 GM TUBE TP SCH ×4 (00:30→19:57)
[2022-07-10] MEDS: GABAPENTIN 300 MG CAPSULE PO SCH ×3 (06:34→21:58)
[2022-07-10] MEDS: methaDONE HCL 40 MG DISPERSABLE TABLET PO SCH (06:58)
[2022-07-10] MEDS: TOLNAFTATE 1% CREAM 15 GM TUBE TP SCH ×2 (09:49→21:56)
[2022-07-10] MEDS: PRENATAL VITAMINS W/ FOLIC ACID TABLET (FP) PO SCH (09:49)
[2022-07-10] MEDS: CYCLOPENTOLATE 1% OS SCH ×2 (09:50→22:28)
[2022-07-10] MEDS: EYE OS SCH ×4 (09:50→22:28)
[2022-07-10] MEDS: prednisoLONE ACETATE 1% OPHTH SUSP 5 ML BOTTLE OS SCH ×2 (09:50→22:33)
[2022-07-10] MEDS: MOXIFLOXACIN 0.5% OS SCH ×2 (09:51→22:22)
[2022-07-10] MEDS: ERYTHROMYCIN 0.5% OPHTHALMIC OINTMENT 3.5 GM TUBE OS SCH ×2 (09:53→22:42)
[2022-07-10] MEDS: NICOTINE POLACRILEX 2 MG GUM BUC PRN (09:53)
[2022-07-10] MEDS: THIAMINE HCL 100 MG TABLET (FP) PO SCH (21:57)
[2022-07-10] MEDS: traZODone HCL 50 MG TABLET (FP) PO SCH (21:57)
[2022-07-10] MEDS: MELATONIN 5 MG TABLETS PO SCH (21:58)
[2022-07-11] MEDS: VITAMINS A AND D TOPICAL OINTMENT 60 GM TUBE TP SCH ×3 (03:13→22:08)
[2022-07-11] MEDS: methaDONE HCL 40 MG DISPERSABLE TABLET PO SCH (06:08)
[2022-07-11] MEDS: GABAPENTIN 300 MG CAPSULE PO SCH ×3 (06:08→22:05)
[2022-07-11] MEDS: PRENATAL VITAMINS W/ FOLIC ACID TABLET (FP) PO SCH (09:58)
[2022-07-11] MEDS: TOLNAFTATE 1% CREAM 15 GM TUBE TP SCH ×2 (09:59→22:07)
[2022-07-11] MEDS: prednisoLONE ACETATE 1% OPHTH SUSP 5 ML BOTTLE OS SCH ×2 (10:26→22:07)
[2022-07-11] MEDS: MOXIFLOXACIN 0.5% OS SCH ×2 (10:27→22:07)
[2022-07-11] MEDS: CYCLOPENTOLATE 1% OS SCH ×2 (10:27→22:07)
[2022-07-11] MEDS: EYE OS SCH ×4 (10:27→22:07)
[2022-07-11] MEDS: ERYTHROMYCIN 0.5% OPHTHALMIC OINTMENT 3.5 GM TUBE OS SCH ×2 (10:27→22:08)
[2022-07-11] MEDS: NICOTINE POLACRILEX 2 MG GUM BUC PRN ×2 (14:26→19:49)
[2022-07-11] MEDS: hydrOXYzine PAMOATE 25 MG CAPSULE (FP) PO PRN (19:46)
[2022-07-11] MEDS: THIAMINE HCL 100 MG TABLET (FP) PO SCH (22:05)
[2022-07-11] MEDS: MELATONIN 5 MG TABLETS PO SCH (22:05)
[2022-07-11] MEDS: traZODone HCL 50 MG TABLET (FP) PO SCH (22:05)
[2022-07-12] MEDS: VITAMINS A AND D TOPICAL OINTMENT 60 GM TUBE TP SCH ×5 (03:41→17:00)
[2022-07-12] MEDS: methaDONE HCL 40 MG DISPERSABLE TABLET PO SCH (05:58)
[2022-07-12] MEDS: GABAPENTIN 300 MG CAPSULE PO SCH ×3 (05:58→21:09)
[2022-07-12] MEDS: PRENATAL VITAMINS W/ FOLIC ACID TABLET (FP) PO SCH (09:52)
[2022-07-12] MEDS: TOLNAFTATE 1% CREAM 15 GM TUBE TP SCH ×2 (09:53→22:31)
[2022-07-12] MEDS: EYE OS SCH ×4 (10:27→22:31)
[2022-07-12] MEDS: ERYTHROMYCIN 0.5% OPHTHALMIC OINTMENT 3.5 GM TUBE OS SCH ×2 (10:27→22:32)
[2022-07-12] MEDS: prednisoLONE ACETATE 1% OPHTH SUSP 5 ML BOTTLE OS SCH ×2 (10:27→22:31)
[2022-07-12] MEDS: CYCLOPENTOLATE 1% OS SCH ×2 (10:27→22:30)
[2022-07-12] MEDS: MOXIFLOXACIN 0.5% OS SCH ×2 (10:27→22:31)
[2022-07-12] MEDS: traZODone HCL 50 MG TABLET (FP) PO SCH (21:08)
[2022-07-12] MEDS: THIAMINE HCL 100 MG TABLET (FP) PO SCH (21:08)
[2022-07-12] MEDS: MELATONIN 5 MG TABLETS PO SCH (21:08)
[2022-07-12] MEDS: NICOTINE 10 MG CARTRIDGE (INHALER) IH PRN (21:09)
[2022-07-13] MEDS: VITAMINS A AND D TOPICAL OINTMENT 60 GM TUBE TP SCH ×4 (00:09→20:46)
[2022-07-13] MEDS: methaDONE HCL 40 MG DISPERSABLE TABLET PO SCH (06:12)
[2022-07-13] MEDS: GABAPENTIN 300 MG CAPSULE PO SCH ×3 (06:12→21:25)
[2022-07-13] MEDS: PRENATAL VITAMINS W/ FOLIC ACID TABLET (FP) PO SCH (09:45)
[2022-07-13] MEDS: TOLNAFTATE 1% CREAM 15 GM TUBE TP SCH ×2 (09:46→23:11)
[2022-07-13] MEDS: NICOTINE 10 MG CARTRIDGE (INHALER) IH PRN (10:33)
[2022-07-13] MEDS: prednisoLONE ACETATE 1% OPHTH SUSP 5 ML BOTTLE OS SCH ×2 (10:34→23:10)
[2022-07-13] MEDS: EYE OS SCH ×4 (10:34→23:10)
[2022-07-13] MEDS: CYCLOPENTOLATE 1% OS SCH ×2 (10:34→23:10)
[2022-07-13] MEDS: ERYTHROMYCIN 0.5% OPHTHALMIC OINTMENT 3.5 GM TUBE OS SCH ×2 (10:35→23:09)
[2022-07-13] MEDS: MOXIFLOXACIN 0.5% OS SCH ×2 (10:35→23:09)
[2022-07-13] MEDS: MELATONIN 5 MG TABLETS PO SCH (21:24)
[2022-07-13] MEDS: traZODone HCL 50 MG TABLET (FP) PO SCH (21:25)
[2022-07-13] MEDS: THIAMINE HCL 100 MG TABLET (FP) PO SCH (21:25)
[2022-07-14] MEDS: VITAMINS A AND D TOPICAL OINTMENT 60 GM TUBE TP SCH ×5 (01:22→23:30)
[2022-07-14] MEDS: methaDONE HCL 40 MG DISPERSABLE TABLET PO SCH (06:24)
[2022-07-14] MEDS: GABAPENTIN 300 MG CAPSULE PO SCH ×3 (06:24→21:32)
[2022-07-14] MEDS: PRENATAL VITAMINS W/ FOLIC ACID TABLET (FP) PO SCH (10:11)
[2022-07-14] MEDS: TOLNAFTATE 1% CREAM 15 GM TUBE TP SCH ×2 (10:12→21:43)
[2022-07-14] MEDS: prednisoLONE ACETATE 1% OPHTH SUSP 5 ML BOTTLE OS SCH ×2 (10:12→21:43)
[2022-07-14] MEDS: ERYTHROMYCIN 0.5% OPHTHALMIC OINTMENT 3.5 GM TUBE OS SCH ×2 (10:12→21:42)
[2022-07-14] MEDS: CYCLOPENTOLATE 1% OS SCH ×2 (10:13→21:42)
[2022-07-14] MEDS: EYE OS SCH ×4 (10:13→21:42)
[2022-07-14] MEDS: MOXIFLOXACIN 0.5% OS SCH ×2 (10:14→21:42)
[2022-07-14] MEDS: NICOTINE 10 MG CARTRIDGE (INHALER) IH PRN (17:38)
[2022-07-14] MEDS: traZODone HCL 50 MG TABLET (FP) PO SCH (21:32)
[2022-07-14] MEDS: THIAMINE HCL 100 MG TABLET (FP) PO SCH (21:32)
[2022-07-14] MEDS: MELATONIN 5 MG TABLETS PO SCH (21:32)
[2022-07-15] MEDS: GABAPENTIN 300 MG CAPSULE PO SCH ×3 (06:26→21:42)
[2022-07-15] MEDS: methaDONE HCL 40 MG DISPERSABLE TABLET PO SCH (06:26)
[2022-07-15] MEDS: VITAMINS A AND D TOPICAL OINTMENT 60 GM TUBE TP SCH ×3 (06:27→18:43)
[2022-07-15] MEDS: PRENATAL VITAMINS W/ FOLIC ACID TABLET (FP) PO SCH (10:08)
[2022-07-15] MEDS: ACETAMINOPHEN 325 MG TABLET (FP) PO PRN (10:09)
[2022-07-15] MEDS: NICOTINE 10 MG CARTRIDGE (INHALER) IH PRN (10:10)
[2022-07-15] MEDS: ERYTHROMYCIN 0.5% OPHTHALMIC OINTMENT 3.5 GM TUBE OS SCH ×2 (10:10→22:29)
[2022-07-15] MEDS: prednisoLONE ACETATE 1% OPHTH SUSP 5 ML BOTTLE OS SCH ×2 (10:11→22:30)
[2022-07-15] MEDS: EYE OS SCH ×4 (10:11→22:30)
[2022-07-15] MEDS: CYCLOPENTOLATE 1% OS SCH ×2 (10:11→22:30)
[2022-07-15] MEDS: MOXIFLOXACIN 0.5% OS SCH ×2 (10:12→22:30)
[2022-07-15] MEDS: TOLNAFTATE 1% CREAM 15 GM TUBE TP SCH ×2 (10:12→22:30)
[2022-07-15] MEDS: traZODone HCL 50 MG TABLET (FP) PO SCH (21:42)
[2022-07-15] MEDS: THIAMINE HCL 100 MG TABLET (FP) PO SCH (21:42)
[2022-07-15] MEDS: MELATONIN 5 MG TABLETS PO SCH (21:43)
[2022-07-16] MEDS: VITAMINS A AND D TOPICAL OINTMENT 60 GM TUBE TP SCH ×4 (01:10→20:07)
[2022-07-16] MEDS: methaDONE HCL 40 MG DISPERSABLE TABLET PO SCH (05:31)
[2022-07-16] MEDS: GABAPENTIN 300 MG CAPSULE PO SCH ×3 (06:20→21:35)
[2022-07-16] MEDS: PRENATAL VITAMINS W/ FOLIC ACID TABLET (FP) PO SCH (09:58)
[2022-07-16] MEDS: TOLNAFTATE 1% CREAM 15 GM TUBE TP SCH ×2 (09:59→22:30)
[2022-07-16] MEDS: prednisoLONE ACETATE 1% OPHTH SUSP 5 ML BOTTLE OS SCH ×2 (10:40→22:30)
[2022-07-16] MEDS: ERYTHROMYCIN 0.5% OPHTHALMIC OINTMENT 3.5 GM TUBE OS SCH ×2 (10:40→22:31)
[2022-07-16] MEDS: CYCLOPENTOLATE 1% OS SCH ×2 (10:41→22:31)
[2022-07-16] MEDS: EYE OS SCH ×4 (10:41→22:31)
[2022-07-16] MEDS: MOXIFLOXACIN 0.5% OS SCH ×2 (10:41→22:30)
[2022-07-16] MEDS: MELATONIN 5 MG TABLETS PO SCH (21:35)
[2022-07-16] MEDS: traZODone HCL 50 MG TABLET (FP) PO SCH (21:35)
[2022-07-16] MEDS: THIAMINE HCL 100 MG TABLET (FP) PO SCH (21:36)
[2022-07-17] MEDS: VITAMINS A AND D TOPICAL OINTMENT 60 GM TUBE TP SCH ×4 (00:30→19:19)
[2022-07-17] MEDS ORDERED: methaDONE 40 MG, methaDONE 30 MG PO SCH (06:00)
[2022-07-17] MEDS: methaDONE HCL 40 MG DISPERSABLE TABLET PO SCH (06:10)
[2022-07-17] MEDS: GABAPENTIN 300 MG CAPSULE PO SCH ×3 (06:10→21:25)
[2022-07-17] MEDS: PRENATAL VITAMINS W/ FOLIC ACID TABLET (FP) PO SCH (09:54)
[2022-07-17] MEDS: NICOTINE 10 MG CARTRIDGE (INHALER) IH PRN ×2 (09:54→21:26)
[2022-07-17] MEDS: TOLNAFTATE 1% CREAM 15 GM TUBE TP SCH ×2 (09:55→23:13)
[2022-07-17] MEDS: EYE OS SCH ×4 (10:19→23:13)
[2022-07-17] MEDS: prednisoLONE ACETATE 1% OPHTH SUSP 5 ML BOTTLE OS SCH ×2 (10:19→23:13)
[2022-07-17] MEDS: ERYTHROMYCIN 0.5% OPHTHALMIC OINTMENT 3.5 GM TUBE OS SCH ×2 (10:19→23:13)
[2022-07-17] MEDS: MOXIFLOXACIN 0.5% OS SCH ×2 (10:19→23:13)
[2022-07-17] MEDS: CYCLOPENTOLATE 1% OS SCH ×2 (10:19→23:13)
[2022-07-17] MEDS: THIAMINE HCL 100 MG TABLET (FP) PO SCH (21:25)
[2022-07-17] MEDS: traZODone HCL 50 MG TABLET (FP) PO SCH (21:25)
[2022-07-17] MEDS: MELATONIN 5 MG TABLETS PO SCH (21:25)
[2022-07-18] MEDS: VITAMINS A AND D TOPICAL OINTMENT 60 GM TUBE TP SCH ×4 (01:26→19:55)
[2022-07-18] MEDS: GABAPENTIN 300 MG CAPSULE PO SCH ×3 (06:23→21:04)
[2022-07-18] MEDS: methaDONE HCL 40 MG DISPERSABLE TABLET PO SCH (06:23)
[2022-07-18] MEDS: TOLNAFTATE 1% CREAM 15 GM TUBE TP SCH ×2 (09:55→22:02)
[2022-07-18] MEDS: PRENATAL VITAMINS W/ FOLIC ACID TABLET (FP) PO SCH (09:55)
[2022-07-18] MEDS: EYE OS SCH ×4 (10:40→22:02)
[2022-07-18] MEDS: MOXIFLOXACIN 0.5% OS SCH ×2 (10:40→22:02)
[2022-07-18] MEDS: prednisoLONE ACETATE 1% OPHTH SUSP 5 ML BOTTLE OS SCH ×2 (10:40→22:02)
[2022-07-18] MEDS: ERYTHROMYCIN 0.5% OPHTHALMIC OINTMENT 3.5 GM TUBE OS SCH ×2 (10:41→22:03)
[2022-07-18] MEDS: CYCLOPENTOLATE 1% OS SCH ×2 (10:41→22:02)
[2022-07-18] MEDS: MAGNESIUM HYDROX 2400MG/30ML ORAL SUSPENSION 30 ML CUP PO PRN (10:47)
[2022-07-18] MEDS: NICOTINE 10 MG CARTRIDGE (INHALER) IH PRN ×2 (10:48→20:05)
[2022-07-18] MEDS: ACETAMINOPHEN 325 MG TABLET (FP) PO PRN (14:15)
[2022-07-18] MEDS: THIAMINE HCL 100 MG TABLET (FP) PO SCH (21:04)
[2022-07-18] MEDS: traZODone HCL 50 MG TABLET (FP) PO SCH (21:04)
[2022-07-18] MEDS: MELATONIN 5 MG TABLETS PO SCH (21:04)
[2022-07-19] MEDS: VITAMINS A AND D TOPICAL OINTMENT 60 GM TUBE TP SCH ×5 (01:15→23:37)
[2022-07-19] MEDS: methaDONE HCL 40 MG DISPERSABLE TABLET PO SCH (06:23)
[2022-07-19] MEDS: GABAPENTIN 300 MG CAPSULE PO SCH ×3 (06:23→21:15)
[2022-07-19] MEDS: NICOTINE 10 MG CARTRIDGE (INHALER) IH PRN ×2 (09:50→19:37)
[2022-07-19] MEDS: PRENATAL VITAMINS W/ FOLIC ACID TABLET (FP) PO SCH (09:50)
[2022-07-19] MEDS: prednisoLONE ACETATE 1% OPHTH SUSP 5 ML BOTTLE OS SCH ×2 (10:15→22:02)
[2022-07-19] MEDS: CYCLOPENTOLATE 1% OS SCH ×2 (10:15→22:01)
[2022-07-19] MEDS: EYE OS SCH ×4 (10:15→22:01)
[2022-07-19] MEDS: TOLNAFTATE 1% CREAM 15 GM TUBE TP SCH ×2 (10:16→21:15)
[2022-07-19] MEDS: MOXIFLOXACIN 0.5% OS SCH ×2 (10:16→22:01)
[2022-07-19] MEDS: ERYTHROMYCIN 0.5% OPHTHALMIC OINTMENT 3.5 GM TUBE OS SCH ×2 (10:16→22:00)
[2022-07-19] MEDS: traZODone HCL 50 MG TABLET (FP) PO SCH (21:15)
[2022-07-19] MEDS: MELATONIN 5 MG TABLETS PO SCH (21:15)
[2022-07-19] MEDS: THIAMINE HCL 100 MG TABLET (FP) PO SCH (22:01)
[2022-07-20] MEDS: methaDONE HCL 40 MG DISPERSABLE TABLET PO SCH (06:11)
[2022-07-20] MEDS: GABAPENTIN 300 MG CAPSULE PO SCH (06:11)
[2022-07-20] MEDS: VITAMINS A AND D TOPICAL OINTMENT 60 GM TUBE TP SCH (06:13)
[2022-07-20 07:15] VITALS: BP 107/74; PULSE 76; RESP 17; TEMP 97.5
[2022-07-20] MEDS: PRENATAL VITAMINS W/ FOLIC ACID TABLET (FP) PO SCH (09:33)
[2022-07-20] MEDS: TOLNAFTATE 1% CREAM 15 GM TUBE TP SCH (09:34)
[2022-07-20] MEDS: prednisoLONE ACETATE 1% OPHTH SUSP 5 ML BOTTLE OS SCH (09:34)
[2022-07-20] MEDS: MOXIFLOXACIN 0.5% OS SCH (09:35)
[2022-07-20] MEDS: ERYTHROMYCIN 0.5% OPHTHALMIC OINTMENT 3.5 GM TUBE OS SCH (09:35)
[2022-07-20] MEDS: CYCLOPENTOLATE 1% OS SCH (09:35)
[2022-07-20] MEDS: EYE OS SCH ×2 (09:35)
== END 2022-07-20 10:45 | disposition home or self-care (01) | DRG 772 ==
LOC: YASAS 13:56 → Y5N 13:58
PROVIDERS: ADMIT Allergy & Immunology; ATTEND Psychiatry & Neurology Pain Medicine
PROC: HZ42ZZZ Group Counseling for Substance Abuse Treatment, Cognitive-Behavioral (ICD-10-PCS; principal; 2022-06-25)
DX: F11.20 Opioid dependence, uncomplicated (principal); F10.20 Alcohol dependence, uncomplicated; F13.20 Sedative, hypnotic or anxiolytic dependence, uncomplicated; F17.210 Nicotine dependence, cigarettes, uncomplicated; F41.9 Anxiety disorder, unspecified; F32.A Depression, unspecified; B35.1 Tinea unguium; L30.9 Dermatitis, unspecified; S05.32XD Ocular laceration without prolapse or loss of intraocular tissue, left eye, subsequent encounter; Y09 Assault by unspecified means
CPT/HCPCS: Q0162

== ENCOUNTER 2022-11-28 16:54 | Inpatient (IN) | payer OTHER ==
[2022-11-28 17:19] VITALS: BMI 27.8
[2022-11-28] MEDS ORDERED: IBUPROFEN 400 MG TABLET (FP) PO PRN (19:42)
[2022-11-28] MEDS ORDERED: ONDANSETRON *ODT* 4 MG TABLET SL PRN (19:42)
[2022-11-28] MEDS ORDERED: POLYETHYLENE GLYCOL (HEALTHYLAX) 3350 17 GM PACKET PO PRN (19:42)
[2022-11-28] MEDS ORDERED: MAGNESIUM HYDROX 2400MG/30ML ORAL SUSPENSION 30 ML CUP PO PRN (19:42)
[2022-11-28] MEDS ORDERED: LOPERAMIDE HCL 2 MG CAPSULE PO PRN (19:42)
[2022-11-28] MEDS ORDERED: NALOXONE HCL 0.4 MG/ML VIAL IM PRN (19:42)
[2022-11-28] MEDS ORDERED: DICYCLOMINE HCL 10 MG CAPSULE PO PRN (19:42)
[2022-11-28] MEDS ORDERED: BISMUTH SUBSALICYLATE 524 MG/30 ML PO PRN (19:42)
[2022-11-28] MEDS ORDERED: NICOTINE POLACRILEX 2 MG GUM BUC PRN (19:42)
[2022-11-28] MEDS ORDERED: ACETAMINOPHEN 325 MG TABLET (FP) PO PRN (19:42)
[2022-11-28] MEDS ORDERED: BENZOCAINE/MENTHOL (CHLORASEPTIC ) LOZENGE MM PRN (19:42)
[2022-11-28] MEDS ORDERED: NALOXONE HCL (KLOXXADO) 8 MG SPRAY NS PRN (19:42)
[2022-11-28] MEDS ORDERED: MAG HYDROX/AL HYDROX/SIMETH 30 ML UNIT-DOSE CUP PO PRN (19:42)
[2022-11-28] MEDS ORDERED: IBUPROFEN 600 MG TABLET (FP) PO PRN (19:42)
[2022-11-28] MEDS ORDERED: guaiFENesin 600 MG TABLET.ER (FP) PO PRN (19:42)
[2022-11-28] MEDS ORDERED: BENZONATATE 200 MG CAPSULE PO PRN (19:42)
[2022-11-28] MEDS ORDERED: MELATONIN 5 MG TABLETS PO SCH (22:00)
[2022-11-28] MEDS: hydrOXYzine PAMOATE 25 MG CAPSULE (FP) PO PRN (22:05)
[2022-11-28] MEDS: METHOCARBAMOL 500 MG TABLET PO PRN (22:05)
[2022-11-28] MEDS: SULFAMETHOXAZOLE/TRIMETHOPRIM 800MG/160MG D.S. TABLET PO SCH (22:05)
[2022-11-28] MEDS: THIAMINE HCL 100 MG TABLET (FP) PO SCH (22:05)
[2022-11-28] MEDS: diazePAM 5 MG TABLET PO SCH (22:06)
[2022-11-29] MEDS: diazePAM 5 MG TABLET PO SCH ×4 (05:49→23:09)
[2022-11-29] MEDS ORDERED: methaDONE HCL 10 MG TABLET PO SCH (08:00)
[2022-11-29] MEDS: hydrOXYzine PAMOATE 25 MG CAPSULE (FP) PO PRN ×2 (09:03→18:23)
[2022-11-29] MEDS: PRENATAL VITAMINS W/ FOLIC ACID TABLET (FP) PO SCH (09:03)
[2022-11-29] MEDS: SULFAMETHOXAZOLE/TRIMETHOPRIM 800MG/160MG D.S. TABLET PO SCH ×2 (09:03→23:09)
[2022-11-29] MEDS: METHOCARBAMOL 500 MG TABLET PO PRN (09:03)
[2022-11-29 11:04] LABS: HEMATOCRIT 35.1 % (32.4-45.2); MCH 29.1 pg (25.7-33.7); MCHC 34.3 g/dl (32.0-36.0); MEAN CELL VOLUME 84.9 fl (80-96); MEAN PLT VOLUME 8.4 fl (7.5-11.1); PLATELET COUNT 205 10^3/uL (134-434); RBC 4.13 M/mm3 (3.60-5.2); RDW 12.7 % (11.6-15.6); WHITE BLOOD COUNT 5.1 K/mm3 (4.0-10.0)
[2022-11-29 11:25] LABS: POTASSIUM 4.5 mmol/L (3.5-5.1)
[2022-11-29 11:28] LABS: CALCIUM 8.7 mg/dL (8.5-10.1)
[2022-11-29 11:29] LABS: ALBUMIN 3.3 g/dl (3.4-5.0); BLOOD UREA NITROGEN 15.5 mg/dL (7-18)
[2022-11-29 11:32] LABS: CREATININE 0.8 mg/dL (0.55-1.3)
[2022-11-29 11:33] LABS: BILIRUBIN,TOTAL 0.2 mg/dL (0.2-1); TOT PROT 6.8 g/dl (6.4-8.2)
[2022-11-29] MEDS: diazePAM 5 MG TABLET PO PRN ×2 (12:40→20:42)
[2022-11-29] MEDS ORDERED: CYCLOPENTOLATE HCL 1% OPHTH SOLN 2 ML BOTTLE OS SCH (13:00)
[2022-11-29] MEDS: GABAPENTIN 300 MG CAPSULE PO SCH ×2 (13:02→23:09)
[2022-11-29] MEDS: THIAMINE HCL 100 MG TABLET (FP) PO SCH (23:09)
[2022-11-29] MEDS: traZODone HCL 50 MG TABLET (FP) PO SCH (23:09)
[2022-11-30] MEDS: GABAPENTIN 300 MG CAPSULE PO SCH ×3 (05:37→22:09)
[2022-11-30] MEDS: diazePAM 5 MG TABLET PO SCH ×3 (05:37→22:09)
[2022-11-30] MEDS: SULFAMETHOXAZOLE/TRIMETHOPRIM 800MG/160MG D.S. TABLET PO SCH ×2 (10:16→22:09)
[2022-11-30] MEDS: PRENATAL VITAMINS W/ FOLIC ACID TABLET (FP) PO SCH (10:16)
[2022-11-30] MEDS: diazePAM 5 MG TABLET PO PRN ×2 (10:16→18:27)
[2022-11-30] MEDS: traZODone HCL 50 MG TABLET (FP) PO SCH (22:09)
[2022-11-30] MEDS: THIAMINE HCL 100 MG TABLET (FP) PO SCH (22:10)
[2022-12-01] MEDS: diazePAM 5 MG TABLET PO SCH ×2 (06:06→17:42)
[2022-12-01] MEDS: GABAPENTIN 300 MG CAPSULE PO SCH ×3 (06:06→22:17)
[2022-12-01] MEDS: SULFAMETHOXAZOLE/TRIMETHOPRIM 800MG/160MG D.S. TABLET PO SCH ×2 (09:58→22:17)
[2022-12-01] MEDS: PRENATAL VITAMINS W/ FOLIC ACID TABLET (FP) PO SCH (09:58)
[2022-12-01] MEDS: diazePAM 5 MG TABLET PO PRN (11:29)
[2022-12-01] MEDS ORDERED: HYDROCORTISONE 1% TOPICAL CREAM 30 GM TUBE TP PRN (13:53)
[2022-12-01] MEDS: hydrOXYzine PAMOATE 25 MG CAPSULE (FP) PO PRN (20:28)
[2022-12-01] MEDS: METHOCARBAMOL 500 MG TABLET PO PRN (20:30)
[2022-12-01] MEDS: THIAMINE HCL 100 MG TABLET (FP) PO SCH (22:17)
[2022-12-01] MEDS: traZODone HCL 50 MG TABLET (FP) PO SCH (22:18)
[2022-12-02] MEDS ORDERED: diazePAM 5 MG TABLET PO ONE (06:00)
[2022-12-02] MEDS: GABAPENTIN 300 MG CAPSULE PO SCH ×2 (06:06→13:10)
[2022-12-02 06:38] VITALS: RESP 16
[2022-12-02] MEDS: SULFAMETHOXAZOLE/TRIMETHOPRIM 800MG/160MG D.S. TABLET PO SCH (09:01)
[2022-12-02] MEDS: PRENATAL VITAMINS W/ FOLIC ACID TABLET (FP) PO SCH (09:01)
[2022-12-02 13:38] VITALS: BP 116/59; PULSE 73; TEMP 97.7
== END 2022-12-02 13:27 | disposition other institution (70) | DRG 773 ==
LOC: YASAS 16:54 → Y3N 20:43
PROVIDERS: ADMIT Allergy & Immunology; ATTEND Surgery
PROC: HZ2ZZZZ Detoxification Services for Substance Abuse Treatment (ICD-10-PCS; principal; 2022-11-28)
DX: F13.230 Sedative, hypnotic or anxiolytic dependence with withdrawal, uncomplicated (principal); F11.20 Opioid dependence, uncomplicated; F14.20 Cocaine dependence, uncomplicated; F17.210 Nicotine dependence, cigarettes, uncomplicated; F19.282 Other psychoactive substance dependence with psychoactive substance-induced sleep disorder; E11.9 Type 2 diabetes mellitus without complications; H54.62 Unqualified visual loss, left eye, normal vision right eye
CPT/HCPCS: 36415; 80053; 81025; 85027; 86780; 87635; Q0162

== ENCOUNTER 2022-12-02 13:44 | Inpatient (IN) | payer OTHER ==
[2022-12-02] MEDS ORDERED: LOPERAMIDE HCL 2 MG CAPSULE PO PRN (14:38)
[2022-12-02] MEDS ORDERED: COLLOIDAL OATMEAL 1 BAR EACH TP PRN (14:38)
[2022-12-02] MEDS ORDERED: NALOXONE HCL 0.4 MG/ML VIAL IVPUSH PRN (14:38)
[2022-12-02] MEDS ORDERED: POLYETHYLENE GLYCOL (HEALTHYLAX) 3350 17 GM PACKET PO PRN (14:38)
[2022-12-02] MEDS ORDERED: NALOXONE HCL (KLOXXADO) 8 MG SPRAY NS PRN (14:38)
[2022-12-02] MEDS ORDERED: AMMONIUM LACTATE 12% LOTION 225 GM BOTTLE TP PRN (14:38)
[2022-12-02] MEDS ORDERED: BENZOCAINE/MENTHOL (CHLORASEPTIC ) LOZENGE MM PRN (14:38)
[2022-12-02] MEDS ORDERED: IBUPROFEN 400 MG TABLET (FP) PO PRN (14:38)
[2022-12-02] MEDS ORDERED: MAGNESIUM HYDROX 2400MG/30ML ORAL SUSPENSION 30 ML CUP PO PRN (14:38)
[2022-12-02] MEDS ORDERED: ACETAMINOPHEN 325 MG TABLET (FP) PO PRN (14:38)
[2022-12-02] MEDS ORDERED: guaiFENesin 600 MG TABLET.ER (FP) PO PRN (14:38)
[2022-12-02] MEDS ORDERED: MAG HYDROX/AL HYDROX/SIMETH 30 ML UNIT-DOSE CUP PO PRN (14:38)
[2022-12-02] MEDS ORDERED: BENZONATATE 200 MG CAPSULE PO PRN (14:38)
[2022-12-02] MEDS: traZODone HCL 50 MG TABLET (FP) PO SCH (21:43)
[2022-12-02] MEDS: SULFAMETHOXAZOLE/TRIMETHOPRIM 800MG/160MG D.S. TABLET PO SCH (21:43)
[2022-12-02] MEDS: MELATONIN 5 MG TABLETS PO SCH (21:43)
[2022-12-02] MEDS: THIAMINE HCL 100 MG TABLET (FP) PO SCH (21:43)
[2022-12-02] MEDS: GABAPENTIN 300 MG CAPSULE PO SCH (21:43)
[2022-12-03] MEDS: GABAPENTIN 300 MG CAPSULE PO SCH ×2 (06:13→14:38)
[2022-12-03] MEDS ORDERED: methaDONE HCL 10 MG TABLET PO SCH (10:00)
[2022-12-03] MEDS: ONDANSETRON *ODT* 4 MG TABLET SL PRN (11:06)
[2022-12-03] MEDS: SULFAMETHOXAZOLE/TRIMETHOPRIM 800MG/160MG D.S. TABLET PO SCH ×2 (11:11→21:50)
[2022-12-03] MEDS: PRENATAL VITAMINS W/ FOLIC ACID TABLET (FP) PO SCH (11:12)
[2022-12-03] MEDS: NICOTINE 14 MG/24 HOURS TOPICAL PATCH TD SCH (11:12)
[2022-12-03 13:04] LABS: HIV INTERPRETATION NEGATIVE (NEGATIVE)
[2022-12-03] MEDS: traZODone HCL 50 MG TABLET (FP) PO SCH (21:50)
[2022-12-03] MEDS: GABAPENTIN 400 MG CAPSULE PO SCH (21:50)
[2022-12-03] MEDS: MELATONIN 5 MG TABLETS PO SCH (21:50)
[2022-12-03] MEDS: THIAMINE HCL 100 MG TABLET (FP) PO SCH (21:50)
[2022-12-03] MEDS ORDERED: clonazePAM 0.5 MG ODT TABLETS SL SCH (22:00)
[2022-12-04] MEDS: GABAPENTIN 400 MG CAPSULE PO SCH ×2 (06:52→14:10)
[2022-12-04] MEDS: SULFAMETHOXAZOLE/TRIMETHOPRIM 800MG/160MG D.S. TABLET PO SCH ×2 (09:49→21:09)
[2022-12-04] MEDS: PRENATAL VITAMINS W/ FOLIC ACID TABLET (FP) PO SCH (09:49)
[2022-12-04] MEDS: NICOTINE 14 MG/24 HOURS TOPICAL PATCH TD SCH (09:50)
[2022-12-04] MEDS: hydrOXYzine PAMOATE 25 MG CAPSULE (FP) PO PRN (14:11)
[2022-12-04] MEDS: traZODone HCL 50 MG TABLET (FP) PO SCH (21:09)
[2022-12-04] MEDS: THIAMINE HCL 100 MG TABLET (FP) PO SCH (21:09)
[2022-12-04] MEDS: GABAPENTIN 300 MG CAPSULE PO SCH (21:09)
[2022-12-04] MEDS: MELATONIN 5 MG TABLETS PO SCH (21:09)
[2022-12-05] MEDS: GABAPENTIN 300 MG CAPSULE PO SCH (06:34)
[2022-12-05] MEDS: PRENATAL VITAMINS W/ FOLIC ACID TABLET (FP) PO SCH (10:42)
[2022-12-05] MEDS: SULFAMETHOXAZOLE/TRIMETHOPRIM 800MG/160MG D.S. TABLET PO SCH ×2 (10:42→21:19)
[2022-12-05] MEDS: METHOCARBAMOL 500 MG TABLET PO PRN (10:42)
[2022-12-05] MEDS: NICOTINE 14 MG/24 HOURS TOPICAL PATCH TD SCH (10:43)
[2022-12-05] MEDS: hydrOXYzine PAMOATE 50 MG CAPSULE (FP) PO PRN ×2 (10:45→21:21)
[2022-12-05] MEDS: GABAPENTIN 400 MG CAPSULE PO SCH ×2 (13:19→21:19)
[2022-12-05] MEDS: MELATONIN 5 MG TABLETS PO SCH (21:19)
[2022-12-05] MEDS: THIAMINE HCL 100 MG TABLET (FP) PO SCH (21:19)
[2022-12-05] MEDS: traZODone HCL 50 MG TABLET (FP) PO SCH (21:20)
[2022-12-06] MEDS: GABAPENTIN 400 MG CAPSULE PO SCH ×3 (06:30→21:33)
[2022-12-06] MEDS ORDERED: NICOTINE 14 MG/24 HOURS TOPICAL PATCH TD PRN (10:22)
[2022-12-06] MEDS: PRENATAL VITAMINS W/ FOLIC ACID TABLET (FP) PO SCH (10:37)
[2022-12-06] MEDS: hydrOXYzine PAMOATE 50 MG CAPSULE (FP) PO PRN ×2 (10:40→21:10)
[2022-12-06] MEDS: NICOTINE POLACRILEX 2 MG GUM BUC PRN ×2 (10:58→20:49)
[2022-12-06] MEDS: PETROLATUM, WHITE 30 GM TUBE TP SCH (10:59)
[2022-12-06] MEDS: NICOTINE 14 MG/24 HOURS TOPICAL PATCH TD SCH (10:59)
[2022-12-06] MEDS: THIAMINE HCL 100 MG TABLET (FP) PO SCH (21:10)
[2022-12-06] MEDS: MELATONIN 5 MG TABLETS PO SCH (21:10)
[2022-12-06] MEDS: METHOCARBAMOL 500 MG TABLET PO PRN (21:10)
[2022-12-06] MEDS: traZODone HCL 50 MG TABLET (FP) PO SCH (21:10)
[2022-12-07] MEDS: GABAPENTIN 400 MG CAPSULE PO SCH ×3 (06:17→21:13)
[2022-12-07] MEDS: PRENATAL VITAMINS W/ FOLIC ACID TABLET (FP) PO SCH (10:15)
[2022-12-07] MEDS: PETROLATUM, WHITE 30 GM TUBE TP SCH (10:16)
[2022-12-07] MEDS: NICOTINE POLACRILEX 2 MG GUM BUC PRN ×3 (10:19→18:31)
[2022-12-07] MEDS: THIAMINE HCL 100 MG TABLET (FP) PO SCH (21:14)
[2022-12-07] MEDS: MELATONIN 5 MG TABLETS PO SCH (21:14)
[2022-12-07] MEDS: traZODone HCL 50 MG TABLET (FP) PO SCH (21:14)
[2022-12-07] MEDS: hydrOXYzine PAMOATE 50 MG CAPSULE (FP) PO PRN (21:15)
[2022-12-08] MEDS: GABAPENTIN 400 MG CAPSULE PO SCH ×3 (06:32→21:04)
[2022-12-08] MEDS: methaDONE HCL 40 MG DISPERSABLE TABLET PO SCH (06:32)
[2022-12-08] MEDS: NICOTINE POLACRILEX 2 MG GUM BUC PRN ×3 (06:33→21:05)
[2022-12-08] MEDS: hydrOXYzine PAMOATE 50 MG CAPSULE (FP) PO PRN (08:01)
[2022-12-08] MEDS: IBUPROFEN 600 MG TABLET (FP) PO PRN (09:03)
[2022-12-08] MEDS: PRENATAL VITAMINS W/ FOLIC ACID TABLET (FP) PO SCH (09:04)
[2022-12-08] MEDS: PETROLATUM, WHITE 30 GM TUBE TP SCH (09:04)
[2022-12-08] MEDS: THIAMINE HCL 100 MG TABLET (FP) PO SCH (21:04)
[2022-12-08] MEDS: MELATONIN 5 MG TABLETS PO SCH (21:04)
[2022-12-08] MEDS: traZODone HCL 50 MG TABLET (FP) PO SCH (21:06)
[2022-12-09] MEDS: GABAPENTIN 400 MG CAPSULE PO SCH ×3 (06:11→21:13)
[2022-12-09] MEDS: methaDONE HCL 40 MG DISPERSABLE TABLET PO SCH (06:11)
[2022-12-09] MEDS: hydrOXYzine PAMOATE 50 MG CAPSULE (FP) PO PRN ×2 (06:12→21:14)
[2022-12-09] MEDS: PRENATAL VITAMINS W/ FOLIC ACID TABLET (FP) PO SCH (10:02)
[2022-12-09] MEDS: PETROLATUM, WHITE 30 GM TUBE TP SCH (10:02)
[2022-12-09] MEDS: NICOTINE POLACRILEX 2 MG GUM BUC PRN (10:04)
[2022-12-09] MEDS: MELATONIN 5 MG TABLETS PO SCH (21:13)
[2022-12-09] MEDS: hydrOXYzine PAMOATE 25 MG CAPSULE (FP) PO PRN (21:13)
[2022-12-09] MEDS: THIAMINE HCL 100 MG TABLET (FP) PO SCH (21:13)
[2022-12-09] MEDS: traZODone HCL 50 MG TABLET (FP) PO SCH (21:14)
[2022-12-10] MEDS: NICOTINE POLACRILEX 2 MG GUM BUC PRN ×2 (02:46→10:18)
[2022-12-10] MEDS: hydrOXYzine PAMOATE 50 MG CAPSULE (FP) PO PRN (03:49)
[2022-12-10] MEDS: GABAPENTIN 400 MG CAPSULE PO SCH ×3 (06:44→22:51)
[2022-12-10] MEDS: methaDONE HCL 40 MG DISPERSABLE TABLET PO SCH (06:44)
[2022-12-10] MEDS: PRENATAL VITAMINS W/ FOLIC ACID TABLET (FP) PO SCH (10:15)
[2022-12-10] MEDS: PETROLATUM, WHITE 30 GM TUBE TP SCH (10:16)
[2022-12-10] MEDS: NICOTINE POLACRILEX 4 MG GUM BUC PRN ×2 (13:28→22:55)
[2022-12-10] MEDS: MELATONIN 5 MG TABLETS PO SCH (22:51)
[2022-12-10] MEDS: traZODone HCL 50 MG TABLET (FP) PO SCH (22:51)
[2022-12-10] MEDS: THIAMINE HCL 100 MG TABLET (FP) PO SCH (22:52)
[2022-12-11] MEDS: GABAPENTIN 400 MG CAPSULE PO SCH ×3 (06:16→21:23)
[2022-12-11] MEDS: methaDONE HCL 40 MG DISPERSABLE TABLET PO SCH (06:16)
[2022-12-11] MEDS: PETROLATUM, WHITE 30 GM TUBE TP SCH (10:20)
[2022-12-11] MEDS: PRENATAL VITAMINS W/ FOLIC ACID TABLET (FP) PO SCH (10:20)
[2022-12-11] MEDS: NICOTINE POLACRILEX 4 MG GUM BUC PRN ×2 (10:22→19:44)
[2022-12-11] MEDS: hydrOXYzine PAMOATE 50 MG CAPSULE (FP) PO PRN (21:23)
[2022-12-11] MEDS: traZODone HCL 50 MG TABLET (FP) PO SCH (21:24)
[2022-12-11] MEDS: THIAMINE HCL 100 MG TABLET (FP) PO SCH (21:24)
[2022-12-11] MEDS: MELATONIN 5 MG TABLETS PO SCH (22:05)
[2022-12-12] MEDS: methaDONE HCL 40 MG DISPERSABLE TABLET PO SCH (06:17)
[2022-12-12] MEDS: GABAPENTIN 400 MG CAPSULE PO SCH ×3 (06:18→21:20)
[2022-12-12] MEDS: NICOTINE POLACRILEX 4 MG GUM BUC PRN ×3 (06:19→21:21)
[2022-12-12 08:38] VITALS: RESP 18
[2022-12-12] MEDS: PETROLATUM, WHITE 30 GM TUBE TP SCH (10:14)
[2022-12-12] MEDS: PRENATAL VITAMINS W/ FOLIC ACID TABLET (FP) PO SCH (10:14)
[2022-12-12] MEDS: traZODone HCL 50 MG TABLET (FP) PO SCH (21:20)
[2022-12-12] MEDS: THIAMINE HCL 100 MG TABLET (FP) PO SCH (21:20)
[2022-12-12] MEDS: MELATONIN 5 MG TABLETS PO SCH (21:36)
[2022-12-13] MEDS: methaDONE HCL 40 MG DISPERSABLE TABLET PO SCH (06:06)
[2022-12-13] MEDS: GABAPENTIN 400 MG CAPSULE PO SCH ×3 (06:06→21:11)
[2022-12-13] MEDS: NICOTINE POLACRILEX 4 MG GUM BUC PRN ×2 (06:10→23:07)
[2022-12-13] MEDS: hydrOXYzine PAMOATE 50 MG CAPSULE (FP) PO PRN (10:15)
[2022-12-13] MEDS: ONDANSETRON *ODT* 4 MG TABLET SL PRN (10:15)
[2022-12-13] MEDS: PRENATAL VITAMINS W/ FOLIC ACID TABLET (FP) PO SCH (10:15)
[2022-12-13] MEDS: PETROLATUM, WHITE 30 GM TUBE TP SCH (10:16)
[2022-12-13] MEDS: IBUPROFEN 600 MG TABLET (FP) PO PRN ×2 (10:17→17:07)
[2022-12-13] MEDS: BISACODYL 5 MG TABLET.DR (FP) PO PRN (11:39)
[2022-12-13] MEDS: SELENIUM SULFIDE 2.25% 180 ML SHAMPOO TP SCH (13:15)
[2022-12-13] MEDS: traZODone HCL 50 MG TABLET (FP) PO SCH (21:11)
[2022-12-13] MEDS: THIAMINE HCL 100 MG TABLET (FP) PO SCH (21:11)
[2022-12-13] MEDS: MELATONIN 5 MG TABLETS PO SCH (21:11)
[2022-12-14] MEDS: methaDONE HCL 40 MG DISPERSABLE TABLET PO SCH (06:06)
[2022-12-14] MEDS: GABAPENTIN 400 MG CAPSULE PO SCH ×3 (06:07→21:46)
[2022-12-14] MEDS: NICOTINE POLACRILEX 4 MG GUM BUC PRN ×3 (06:09→21:47)
[2022-12-14] MEDS: PRENATAL VITAMINS W/ FOLIC ACID TABLET (FP) PO SCH (10:07)
[2022-12-14] MEDS: BISACODYL 5 MG TABLET.DR (FP) PO PRN (10:09)
[2022-12-14] MEDS: SELENIUM SULFIDE 2.25% 180 ML SHAMPOO TP SCH (10:10)
[2022-12-14] MEDS: PETROLATUM, WHITE 30 GM TUBE TP SCH (10:10)
[2022-12-14] MEDS: THIAMINE HCL 100 MG TABLET (FP) PO SCH (21:45)
[2022-12-14] MEDS: MELATONIN 5 MG TABLETS PO SCH (21:46)
[2022-12-14] MEDS: traZODone HCL 50 MG TABLET (FP) PO SCH (21:46)
[2022-12-15] MEDS: methaDONE HCL 40 MG DISPERSABLE TABLET PO SCH (06:13)
[2022-12-15] MEDS: GABAPENTIN 400 MG CAPSULE PO SCH ×3 (06:13→21:15)
[2022-12-15] MEDS: NICOTINE POLACRILEX 4 MG GUM BUC PRN ×4 (06:15→21:17)
[2022-12-15] MEDS: PRENATAL VITAMINS W/ FOLIC ACID TABLET (FP) PO SCH (10:21)
[2022-12-15] MEDS: SELENIUM SULFIDE 2.25% 180 ML SHAMPOO TP SCH (10:24)
[2022-12-15] MEDS: BISACODYL 5 MG TABLET.DR (FP) PO PRN (10:25)
[2022-12-15] MEDS: PETROLATUM, WHITE 30 GM TUBE TP SCH (10:25)
[2022-12-15] MEDS: MELATONIN 5 MG TABLETS PO SCH (21:15)
[2022-12-15] MEDS: THIAMINE HCL 100 MG TABLET (FP) PO SCH (21:15)
[2022-12-15] MEDS: traZODone HCL 50 MG TABLET (FP) PO SCH (21:15)
[2022-12-16] MEDS: methaDONE HCL 40 MG DISPERSABLE TABLET PO SCH (06:09)
[2022-12-16] MEDS: GABAPENTIN 400 MG CAPSULE PO SCH ×3 (06:09→21:16)
[2022-12-16] MEDS: NICOTINE POLACRILEX 4 MG GUM BUC PRN ×2 (06:11→09:53)
[2022-12-16] MEDS: PRENATAL VITAMINS W/ FOLIC ACID TABLET (FP) PO SCH (09:51)
[2022-12-16] MEDS: PETROLATUM, WHITE 30 GM TUBE TP SCH (09:52)
[2022-12-16] MEDS: SELENIUM SULFIDE 2.25% 180 ML SHAMPOO TP SCH (09:54)
[2022-12-16] MEDS: MELATONIN 5 MG TABLETS PO SCH (21:16)
[2022-12-16] MEDS: THIAMINE HCL 100 MG TABLET (FP) PO SCH (21:17)
[2022-12-16] MEDS: traZODone HCL 50 MG TABLET (FP) PO SCH (21:19)
[2022-12-17] MEDS: methaDONE HCL 40 MG DISPERSABLE TABLET PO SCH (06:27)
[2022-12-17] MEDS: GABAPENTIN 400 MG CAPSULE PO SCH ×3 (06:28→21:10)
[2022-12-17] MEDS: NICOTINE POLACRILEX 4 MG GUM BUC PRN ×2 (06:30→10:51)
[2022-12-17] MEDS: SELENIUM SULFIDE 2.25% 180 ML SHAMPOO TP SCH (10:49)
[2022-12-17] MEDS: hydrOXYzine PAMOATE 50 MG CAPSULE (FP) PO PRN (10:51)
[2022-12-17] MEDS: PRENATAL VITAMINS W/ FOLIC ACID TABLET (FP) PO SCH (10:52)
[2022-12-17] MEDS: PETROLATUM, WHITE 30 GM TUBE TP SCH (10:52)
[2022-12-17] MEDS: BISACODYL 5 MG TABLET.DR (FP) PO PRN (10:54)
[2022-12-17] MEDS ORDERED: BISACODYL 5 MG TABLET.DR (FP) PO ONE (11:15)
[2022-12-17] MEDS: traZODone HCL 50 MG TABLET (FP) PO SCH (21:10)
[2022-12-17] MEDS: THIAMINE HCL 100 MG TABLET (FP) PO SCH (21:10)
[2022-12-17] MEDS: SENNOSIDES 8.6MG TABLET (FP) PO SCH (21:10)
[2022-12-17] MEDS: MELATONIN 5 MG TABLETS PO SCH (21:12)
[2022-12-18] MEDS: methaDONE HCL 40 MG DISPERSABLE TABLET PO SCH (06:25)
[2022-12-18] MEDS: GABAPENTIN 400 MG CAPSULE PO SCH ×3 (06:26→21:19)
[2022-12-18] MEDS: PRENATAL VITAMINS W/ FOLIC ACID TABLET (FP) PO SCH (09:52)
[2022-12-18] MEDS: SELENIUM SULFIDE 2.25% 180 ML SHAMPOO TP SCH (09:54)
[2022-12-18] MEDS: PETROLATUM, WHITE 30 GM TUBE TP SCH (09:54)
[2022-12-18] MEDS: NICOTINE POLACRILEX 4 MG GUM BUC PRN ×2 (18:06→21:20)
[2022-12-18] MEDS: THIAMINE HCL 100 MG TABLET (FP) PO SCH (21:19)
[2022-12-18] MEDS: SENNOSIDES 8.6MG TABLET (FP) PO SCH (21:19)
[2022-12-18] MEDS: traZODone HCL 50 MG TABLET (FP) PO SCH (21:19)
[2022-12-18] MEDS: MELATONIN 5 MG TABLETS PO SCH (21:19)
[2022-12-19] MEDS: methaDONE HCL 40 MG DISPERSABLE TABLET PO SCH (05:36)
[2022-12-19] MEDS: GABAPENTIN 400 MG CAPSULE PO SCH ×3 (05:36→21:27)
[2022-12-19] MEDS: NICOTINE POLACRILEX 4 MG GUM BUC PRN ×3 (05:37→21:29)
[2022-12-19] MEDS: PRENATAL VITAMINS W/ FOLIC ACID TABLET (FP) PO SCH (09:53)
[2022-12-19] MEDS: SELENIUM SULFIDE 2.25% 180 ML SHAMPOO TP SCH (10:14)
[2022-12-19] MEDS: PETROLATUM, WHITE 30 GM TUBE TP SCH (10:15)
[2022-12-19] MEDS ORDERED: BISACODYL 10 MG SUPP.RECT PR PRN (13:19)
[2022-12-19] MEDS ORDERED: SODIUM PHOSPHATE/NA BIPHOS 133 ML ENEMA RC ONE (13:45)
[2022-12-19] MEDS: hydrOXYzine PAMOATE 50 MG CAPSULE (FP) PO PRN (14:29)
[2022-12-19] MEDS: MELATONIN 5 MG TABLETS PO SCH (21:26)
[2022-12-19] MEDS: SENNOSIDES 8.6MG TABLET (FP) PO SCH (21:27)
[2022-12-19] MEDS: THIAMINE HCL 100 MG TABLET (FP) PO SCH (21:27)
[2022-12-19] MEDS: traZODone HCL 50 MG TABLET (FP) PO SCH (21:29)
[2022-12-20] MEDS: methaDONE HCL 40 MG DISPERSABLE TABLET PO SCH (05:47)
[2022-12-20] MEDS: GABAPENTIN 400 MG CAPSULE PO SCH (05:47)
[2022-12-20] MEDS: NICOTINE POLACRILEX 4 MG GUM BUC PRN ×2 (05:50→09:21)
[2022-12-20 06:51] VITALS: BP 105/62; PULSE 63; TEMP 97.7
[2022-12-20] MEDS: PRENATAL VITAMINS W/ FOLIC ACID TABLET (FP) PO SCH (09:19)
[2022-12-20] MEDS: PETROLATUM, WHITE 30 GM TUBE TP SCH (09:20)
[2022-12-20] MEDS: SELENIUM SULFIDE 2.25% 180 ML SHAMPOO TP SCH (09:21)
== END 2022-12-20 10:00 | disposition home or self-care (01) | DRG 772 ==
LOC: YASAS 13:44 → Y5N 13:45
PROVIDERS: ADMIT Allergy & Immunology; ATTEND Psychiatry & Neurology Pain Medicine
PROC: HZ42ZZZ Group Counseling for Substance Abuse Treatment, Cognitive-Behavioral (ICD-10-PCS; principal; 2022-12-02)
DX: F13.20 Sedative, hypnotic or anxiolytic dependence, uncomplicated (principal); F10.20 Alcohol dependence, uncomplicated; F14.20 Cocaine dependence, uncomplicated; F12.20 Cannabis dependence, uncomplicated; F17.210 Nicotine dependence, cigarettes, uncomplicated; F31.9 Bipolar disorder, unspecified; F41.9 Anxiety disorder, unspecified; H54.62 Unqualified visual loss, left eye, normal vision right eye; L02.11 Cutaneous abscess of neck; K59.00 Constipation, unspecified; R73.03 Prediabetes; Z86.19 Personal history of other infectious and parasitic diseases
CPT/HCPCS: 36415; 87389; Q0162

== ENCOUNTER 2023-06-24 12:59 | Inpatient (IN) | payer OTHER ==
[2023-06-24 14:09] VITALS: BMI 31.3
[2023-06-24] MEDS ORDERED: NALOXONE HCL (KLOXXADO) 8 MG SPRAY NS PRN (17:06)
[2023-06-24] MEDS ORDERED: BENZONATATE 200 MG CAPSULE PO PRN (17:06)
[2023-06-24] MEDS ORDERED: BISMUTH SUBSALICYLATE 524 MG/30 ML PO PRN (17:06)
[2023-06-24] MEDS ORDERED: IBUPROFEN 400 MG TABLET (FP) PO PRN (17:06)
[2023-06-24] MEDS ORDERED: guaiFENesin 600 MG TABLET.ER (FP) PO PRN (17:06)
[2023-06-24] MEDS ORDERED: MAG HYDROX/AL HYDROX/SIMETH 30 ML UNIT-DOSE CUP PO PRN (17:06)
[2023-06-24] MEDS ORDERED: DICYCLOMINE HCL 10 MG CAPSULE PO PRN (17:06)
[2023-06-24] MEDS ORDERED: LOPERAMIDE HCL 2 MG CAPSULE PO PRN (17:06)
[2023-06-24] MEDS ORDERED: ONDANSETRON *ODT* 4 MG TABLET SL PRN (17:06)
[2023-06-24] MEDS ORDERED: MAGNESIUM HYDROX 2400MG/30ML ORAL SUSPENSION 30 ML CUP PO PRN (17:06)
[2023-06-24] MEDS ORDERED: ACETAMINOPHEN 325 MG TABLET (FP) PO PRN (17:06)
[2023-06-24] MEDS ORDERED: BENZOCAINE/MENTHOL (CHLORASEPTIC ) LOZENGE MM PRN (17:06)
[2023-06-24] MEDS ORDERED: NALOXONE HCL 0.4 MG/ML VIAL IM PRN (17:06)
[2023-06-24] MEDS ORDERED: POLYETHYLENE GLYCOL (HEALTHYLAX) 3350 17 GM PACKET PO PRN (17:06)
[2023-06-24] MEDS: diazePAM 5 MG TABLET PO SCH (18:08)
[2023-06-24] MEDS: IBUPROFEN 600 MG TABLET (FP) PO PRN (18:08)
[2023-06-24] MEDS: NICOTINE POLACRILEX 2 MG GUM BUC PRN (18:09)
[2023-06-24] MEDS: MELATONIN 5 MG TABLETS PO SCH (22:51)
[2023-06-24] MEDS: THIAMINE HCL 100 MG TABLET (FP) PO SCH (22:51)
[2023-06-25] MEDS: PRENATAL VITAMINS W/ FOLIC ACID TABLET (FP) PO SCH (10:15)
[2023-06-25] MEDS: NICOTINE 14 MG/24 HOURS TOPICAL PATCH TD SCH (10:15)
[2023-06-25] MEDS: methaDONE HCL 40 MG DISPERSABLE TABLET PO ONE (10:15)
[2023-06-25] MEDS: hydrOXYzine PAMOATE 25 MG CAPSULE (FP) PO PRN (11:54)
[2023-06-25] MEDS: METHOCARBAMOL 500 MG TABLET PO PRN (11:54)
[2023-06-25 12:33] LABS: CHLORIDE 105 mmol/L (98-107); POTASSIUM 4.3 mmol/L (3.5-5.1); SODIUM 138 mmol/L (136-145)
[2023-06-25 12:36] LABS: HEMATOCRIT 36.7 % (32.4-45.2); HEMOGLOBIN 11.9 GM/dL (10.7-15.3); MCH 27.9 pg (25.7-33.7); MCHC 32.6 g/dl (32.0-36.0); MEAN CELL VOLUME 85.6 fl (80-96); MEAN PLT VOLUME 8.2 fl (7.5-11.1); PLATELET COUNT 321 10^3/uL (134-434); RBC 4.28 M/mm3 (3.60-5.2); RDW 13.9 % (11.6-15.6); WHITE BLOOD COUNT 7.4 K/mm3 (4.0-10.0)
[2023-06-25 12:38] LABS: ALBUMIN 3.2 g/dl (3.4-5.0); ANION GAP 3 mmol/L (4-13); BLOOD UREA NITROGEN 17.2 mg/dL (7-18); CALCIUM 9.1 mg/dL (8.5-10.1); CO2 31 mmol/L (21-32); GLUCOSE,RANDOM 103 mg/dL (74-106)
[2023-06-25 12:41] LABS: CREATININE 0.8 mg/dL (0.55-1.3); SGOT/AST 12 U/L (15-37); SGPT/ALT 21 U/L (13-61)
[2023-06-25 12:42] LABS: TOT PROT 7.6 g/dl (6.4-8.2)
[2023-06-25 12:43] LABS: ALK PHOS 72 U/L (45-117); BILIRUBIN,TOTAL 0.4 mg/dL (0.2-1)
[2023-06-25] MEDS: diazePAM 5 MG TABLET PO PRN (13:24)
[2023-06-25 13:32] LABS: HIV INTERPRETATION NEGATIVE (NEGATIVE)
[2023-06-26] MEDS: methaDONE HCL 40 MG DISPERSABLE TABLET PO SCH (05:25)
[2023-06-26] MEDS: diazePAM 5 MG TABLET PO SCH (05:25)
[2023-06-26] MEDS: methaDONE HCL 10 MG TABLET PO ONE (10:37)
[2023-06-26] MEDS: GABAPENTIN 400 MG CAPSULE PO SCH (13:19)
[2023-06-26] MEDS: traZODone HCL 50 MG TABLET (FP) PO SCH (21:22)
[2023-06-27] MEDS: diazePAM 5 MG TABLET PO SCH (05:55)
[2023-06-27] MEDS: methaDONE HCL 10 MG TABLET PO ONE (06:28)
[2023-06-27] MEDS: diazePAM 5 MG TABLET PO ONE (20:11)
[2023-06-28] MEDS: methaDONE 40 MG, methaDONE 30 MG PO ONE (05:59)
[2023-06-28] MEDS: diazePAM 5 MG TABLET PO ONE (06:00)
[2023-06-28] MEDS ORDERED: methaDONE HCL 10 MG TABLET PO ONE ×2 (06:00)
[2023-06-28 08:26] VITALS: RESP 16
[2023-06-28 11:28] VITALS: BP 116/55; PULSE 71; TEMP 97.5
== END 2023-06-28 10:40 | disposition home or self-care (01) | DRG 773 ==
LOC: YASAS 12:59 → Y6N 16:51 → UNDODISIN 06-25 07:30
PROVIDERS: ADMIT Allergy & Immunology; ATTEND Surgery
PROC: HZ2ZZZZ Detoxification Services for Substance Abuse Treatment (ICD-10-PCS; principal; 2023-06-24)
DX: F10.230 Alcohol dependence with withdrawal, uncomplicated (principal); F13.230 Sedative, hypnotic or anxiolytic dependence with withdrawal, uncomplicated; F11.20 Opioid dependence, uncomplicated; F14.20 Cocaine dependence, uncomplicated; F12.20 Cannabis dependence, uncomplicated; F17.210 Nicotine dependence, cigarettes, uncomplicated; F31.9 Bipolar disorder, unspecified; F19.282 Other psychoactive substance dependence with psychoactive substance-induced sleep disorder; F19.280 Other psychoactive substance dependence with psychoactive substance-induced anxiety disorder; F19.24 Other psychoactive substance dependence with psychoactive substance-induced mood disorder; F43.10 Post-traumatic stress disorder, unspecified; G47.00 Insomnia, unspecified; H54.62 Unqualified visual loss, left eye, normal vision right eye; R73.03 Prediabetes; Z86.19 Personal history of other infectious and parasitic diseases; Z86.39 Personal history of other endocrine, nutritional and metabolic disease; Z56.0 Unemployment, unspecified; Z59.00 Homelessness unspecified
CPT/HCPCS: 36415; 80053; 80307; 81025; 82962; 85027; 86780; 87389; 93005; 93010

== ENCOUNTER 2024-03-03 12:58 | Inpatient (IN) | payer OTHER ==
[2024-03-03 14:23] VITALS: BMI 36.3
[2024-03-03] MEDS ORDERED: BENZONATATE 200 MG CAPSULE PO PRN (15:46)
[2024-03-03] MEDS ORDERED: BISMUTH SUBSALICYLATE 524 MG/30 ML PO PRN (15:46)
[2024-03-03] MEDS ORDERED: BENZOCAINE/MENTHOL (CHLORASEPTIC ) LOZENGE MM PRN (15:46)
[2024-03-03] MEDS ORDERED: DICYCLOMINE HCL 10 MG CAPSULE PO PRN (15:46)
[2024-03-03] MEDS ORDERED: ONDANSETRON *ODT* 4 MG TABLET SL PRN (15:46)
[2024-03-03] MEDS ORDERED: LOPERAMIDE HCL 2 MG CAPSULE PO PRN (15:46)
[2024-03-03] MEDS ORDERED: guaiFENesin 600 MG TABLET.ER (FP) PO PRN (15:46)
[2024-03-03] MEDS ORDERED: NALOXONE (NARCAN) HCL 4 MG/0.1 ML SPRAY NS PRN (15:46)
[2024-03-03] MEDS ORDERED: MAG HYDROX/AL HYDROX/SIMETH 30 ML UNIT-DOSE CUP PO PRN (15:46)
[2024-03-03] MEDS ORDERED: POLYETHYLENE GLYCOL (HEALTHYLAX) 3350 17 GM PACKET PO PRN (15:46)
[2024-03-03] MEDS ORDERED: MAGNESIUM HYDROX 2400MG/30ML ORAL SUSPENSION 30 ML CUP PO PRN (15:46)
[2024-03-03] MEDS ORDERED: IBUPROFEN 400 MG TABLET (FP) PO PRN (15:46)
[2024-03-03] MEDS ORDERED: cloNIDine HCL 0.1 MG TABLET ONE (18:32)
[2024-03-03] MEDS ORDERED: diazePAM 5 MG TABLET ONE (18:32)
[2024-03-03] MEDS: cloNIDine HCL 0.1 MG TABLET PO SCH (18:40)
[2024-03-03] MEDS: diazePAM 5 MG TABLET PO SCH (18:42)
[2024-03-03] MEDS: diazePAM 5 MG TABLET PO ONE (18:43)
[2024-03-03] MEDS: METHOCARBAMOL 500 MG TABLET PO PRN (19:40)
[2024-03-03] MEDS: hydrOXYzine PAMOATE 25 MG CAPSULE (FP) PO PRN (20:04)
[2024-03-03] MEDS: THIAMINE 100 MG TABLET PO SCH (22:16)
[2024-03-03] MEDS: MELATONIN 5 MG TABLETS PO SCH (22:16)
[2024-03-03] MEDS: traZODone HCL 50 MG TABLET (FP) PO SCH (22:17)
[2024-03-03] MEDS: NICOTINE POLACRILEX 4 MG GUM BUC PRN (22:21)
[2024-03-04] MEDS ORDERED: methaDONE HCL 10 MG TABLET PO SCH ×2 (06:00→09:30)
[2024-03-04] MEDS: NICOTINE 14 MG/24 HOURS TOPICAL PATCH TD SCH (09:58)
[2024-03-04] MEDS: PRENATAL VITAMINS W/ FOLIC ACID TABLET (FP) PO SCH (09:58)
[2024-03-04 11:14] LABS: HEMOGLOBIN 11.1 GM/dL (10.7-15.3); MCH 27.1 pg (25.7-33.7); MCHC 32.5 g/dl (32.0-36.0); MEAN CELL VOLUME 83.3 fl (80-96); MEAN PLT VOLUME 8.8 fl (7.5-11.1); PLATELET COUNT 255 10^3/uL (134-434); RBC 4.09 M/mm3 (3.60-5.2); RDW 13.3 % (11.6-15.6)
[2024-03-04 11:51] LABS: CHLORIDE 107 mmol/L (98-107); POTASSIUM 3.4 mmol/L (3.5-5.1); SODIUM 139 mmol/L (136-145)
[2024-03-04 11:55] LABS: ANION GAP 5 mmol/L (4-13); CALCIUM 8.8 mg/dL (8.5-10.1); CO2 28 mmol/L (21-32); GLUCOSE,RANDOM 125 mg/dL (74-106)
[2024-03-04 11:56] LABS: ALBUMIN 3.4 g/dl (3.4-5.0); BLOOD UREA NITROGEN 12.3 mg/dL (7-18)
[2024-03-04 11:59] LABS: CREATININE 0.8 mg/dL (0.55-1.3); SGOT/AST 22 U/L (15-37); SGPT/ALT 41 U/L (13-61)
[2024-03-04 12:00] LABS: BILIRUBIN,TOTAL 0.4 mg/dL (0.2-1); TOT PROT 7.2 g/dl (6.4-8.2)
[2024-03-04 12:01] LABS: ALK PHOS 78 U/L (45-117)
[2024-03-04] MEDS: IBUPROFEN 600 MG TABLET (FP) PO PRN (12:19)
[2024-03-04] MEDS: GABAPENTIN 400 MG CAPSULE PO SCH (13:19)
[2024-03-04] MEDS: diazePAM 5 MG TABLET PO PRN (14:44)
[2024-03-04] MEDS: ACETAMINOPHEN 325 MG TABLET (FP) PO PRN (18:12)
[2024-03-05] MEDS: diazePAM 5 MG TABLET PO SCH (05:56)
[2024-03-05] MEDS: methaDONE HCL 10 MG TABLET PO ONE (09:05)
[2024-03-05] MEDS: cloNIDine HCL 0.1 MG TABLET PO PRN (14:39)
[2024-03-06] MEDS: diazePAM 5 MG TABLET PO SCH (05:31)
[2024-03-06] MEDS: methaDONE HCL 10 MG TABLET PO ONE (09:52)
[2024-03-06] MEDS: diazePAM 5 MG TABLET PO ONE (22:45)
[2024-03-07] MEDS: diazePAM 5 MG TABLET PO ONE ×2 (05:49→22:10)
[2024-03-07] MEDS: methaDONE HCL 10 MG TABLET PO ONE (10:07)
[2024-03-08 08:11] VITALS: TEMP 97.5
[2024-03-08 09:24] VITALS: BP 127/73; PULSE 91; RESP 16
[2024-03-08] MEDS ORDERED: NALOXONE (NYS OPIOID OVERDOSE PROGRAM) 4 MG/0.1 ML SPRAY NS PRN (09:30)
[2024-03-08] MEDS: methaDONE HCL 10 MG TABLET PO ONE (09:35)
== END 2024-03-08 10:53 | disposition other institution (70) | DRG 773 ==
LOC: YASAS 12:58 → Y6N 18:46
PROVIDERS: ADMIT Allergy & Immunology; ATTEND Surgery
PROC: HZ2ZZZZ Detoxification Services for Substance Abuse Treatment (ICD-10-PCS; principal; 2024-03-03)
DX: F10.230 Alcohol dependence with withdrawal, uncomplicated (principal); F11.20 Opioid dependence, uncomplicated; F13.20 Sedative, hypnotic or anxiolytic dependence, uncomplicated; F14.20 Cocaine dependence, uncomplicated; F12.20 Cannabis dependence, uncomplicated; F17.210 Nicotine dependence, cigarettes, uncomplicated; F19.282 Other psychoactive substance dependence with psychoactive substance-induced sleep disorder; F19.280 Other psychoactive substance dependence with psychoactive substance-induced anxiety disorder; F19.24 Other psychoactive substance dependence with psychoactive substance-induced mood disorder; F33.1 Major depressive disorder, recurrent, moderate; H54.62 Unqualified visual loss, left eye, normal vision right eye; B18.2 Chronic viral hepatitis C
CPT/HCPCS: 36415; 80053; 80307; 85027; 86780; 93005; 93010